=== PATIENT | female | born 1930 | race Caucasian/White ===

== ENCOUNTER 2017-04-18 15:47 | Inpatient (IN) | payer MEDICARE ==
[~2017-04-18] VITALS: Ht 172.7 cm; Wt 75.9 kg
[2017-04-18 17:59] VITALS: BP 175/101
[2017-04-18] MEDS ORDERED: METHYL SALICYLATE/MENTHOL TOPICAL OINTMENT 29GM TUBE. TP PRN (18:15)
[2017-04-18] MEDS ORDERED: ACETAMINOPHEN 325 MG TABLET PO PRN ×2 (18:15→19:00)
[2017-04-18] MEDS ORDERED: MAG HYDROX/AL HYDROX/SIMETH 30 ML ORAL.SUSP PO PRN (18:15)
[2017-04-18] MEDS ORDERED: IBUP400T18 PO (18:46)
[2017-04-18] MEDS ORDERED: QUET50TA5 PO (18:46)
[2017-04-18] MEDS ORDERED: OMEP20CA9 PO (18:46)
[2017-04-18] MEDS ORDERED: NAPR220T70 PO (18:46)
[2017-04-18] MEDS ORDERED: LORA0.5T PO (18:46)
[2017-04-18] MEDS ORDERED: MAG355OR11 PO (18:46)
[2017-04-18] MEDS ORDERED: TRIA15CR50 TP (18:46)
[2017-04-18] MEDS ORDERED: MULT1TAB52 PO (18:46)
[2017-04-18] MEDS ORDERED: QUET25TA5 PO (18:46)
[2017-04-18] MEDS ORDERED: CALC200T3 PO (18:46)
[2017-04-18] MEDS ORDERED: DOCU-109 PO (18:46)
[2017-04-18] MEDS ORDERED: BUSP5TAB PO (18:46)
[2017-04-18] MEDS ORDERED: ACET325T9 PO (18:46)
[2017-04-18 18:56] LABS: BASO % 1 % (0-3); EOS # 0.3 x10^3/uL (0.0-0.7); EOS % 4 % (0-3); HEMOGLOBIN 12.7 g/dL (12.0-15.5); LYMPH # 1.1 x10^3/uL (1.0-4.8); LYMPH % 18 % (24-48); MEAN CORPUSCULAR HEMOGLOBIN 30 pg (25-35); MEAN CORPUSCULAR HGB CONC 34 g/dL (31-37); MEAN CORPUSCULAR VOLUME 87 fL (79-100); MONO # 0.4 x10^3/uL (0.0-1.1); MONO % 6 % (0-9); NEUT # 4.6 x10^3uL (1.8-7.7); NEUT % 72 % (31-73); PLATELET COUNT 301 x10^3/uL (140-400); RED BLOOD COUNT 4.25 x10^6/uL (3.50-5.40); RED CELL DISTRIBUTION WIDTH 13.3 % (11.5-14.5); WHITE BLOOD COUNT 6.4 x10^3/uL (4.0-11.0)
[2017-04-18] MEDS ORDERED: DOCUSATE SODIUM 100 MG CAPSULE PO PRN (19:00)
[2017-04-18] MEDS ORDERED: CALCIUM CARBONATE 500 MG TAB.CHEW PO PRN (19:00)
[2017-04-18] MEDS ORDERED: IBUPROFEN 400 MG TABLET. PO PRN (19:00)
[2017-04-18] MEDS ORDERED: TRIAMCINOLONE ACETONIDE 0.5% TOPICAL CREAM 15GM TUBE. TP PRN (19:00)
[2017-04-18 19:08] LABS: ALBUMIN 3.4 g/dL (3.4-5.0); ALBUMIN/GLOBULIN RATIO 0.8 (1.0-1.7); CALCIUM 9.6 mg/dL (8.5-10.1); CREATININE 0.9 mg/dL (0.6-1.0); GFR 59.1; MAGNESIUM 1.8 mg/dL (1.8-2.4); POTASSIUM 4.3 mmol/L (3.5-5.1); TOTAL BILIRUBIN 0.3 mg/dL (0.2-1.0); TOTAL PROTEIN 7.5 g/dL (6.4-8.2)
[2017-04-18] MEDS ORDERED: IBUPROFEN 800 MG TABLET. PO PRN (19:15)
[2017-04-18] MEDS: QUEtiapine 50 MG TABLET. PO SCH (20:17)
[2017-04-18] MEDS: LORazepam 0.5 MG TABLET PO SCH (20:17)
[2017-04-18 20:29] LABS: BACTERIA,URINE 0 /HPF (0-FEW); BILIRUBIN,URINE NEG (NEG); CLARITY,URINE HAZY; COLOR,URINE YELLOW; GLUCOSE,URINE NEG (NEG); NITRITE,URINE NEG (NEG); SQUAMOUS EPITHELIAL CELL,UR MOD /LPF; UROBILINOGEN,URINE 0.2 mg/dL (0.2 mg/dL)
[2017-04-18] MEDS ORDERED: NON FORMULARY ITEM (Naproxen Sodium (Aleve) 220 MG) PO SCH (21:00)
[2017-04-19 00:50] VITALS: BP 128/66
[2017-04-19 05:57] VITALS: BP 172/75
[2017-04-19] MEDS: busPIRone 5 MG TABLET. PO SCH ×2 (09:02→14:59)
[2017-04-19] MEDS: PANTOPRAZOLE 40 MG TABLET. PO SCH (09:02)
[2017-04-19] MEDS: QUEtiapine 25 MG TABLET. PO SCH ×2 (09:03→14:59)
[2017-04-19 10:42] LABS: THYROID STIM HORMONE (TSH) 1.497 uIU/mL (0.358-3.740)
--- NOTE | 2017-04-19 11:28 | EKG ---
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
[2017-04-19 12:07] LABS: T3 TOTAL 88 ng/dL (71-180); THYROXINE 5.3 ug/dL (4.5-12.0)
[2017-04-19 14:09] LABS: HEMOGLOBIN A1C 5.7 % (4.8-5.6)
--- NOTE | 2017-04-19 16:03 | CONS ---
DATE OF CONSULTATION: 04/19/2017 REASON FOR CONSULTATION: Consult for medical management for the patient. HISTORY OF PRESENT ILLNESS: The patient is an 87-year-old female patient who is a resident at [facility] who apparently has been yelling, screaming, throwing self on the floor, agitated with increased aggression, delusional, stating that she is held captive at the facility. She apparently was seen at [facility] and was admitted [facility] for inpatient psychiatric stabilization. Apparently when she was seen, she was brought to the Emergency Room of [facility]. Patient has not slept for 3 weeks. She has visual hallucination, combative behavior on the background of Alzheimer disease. The patient is very forgetful and does not give any useful information. PAST MEDICAL HISTORY: Significant for hypertension, osteoarthritis, anemia, ataxia, recurrent falls. PAST SURGICAL HISTORY: Unremarkable, although the patient stated that she has appendectomy and cholecystectomy. PAST PSYCHIATRIC HISTORY: Significant for depression, anxiety, and severe dementia. ALLERGIES: She is allergic to CEFUROXIME. MEDICATIONS: She is currently on the following medications: Acetaminophen 650 mg every 4 hours as needed, buspirone 5 mg twice a day, calcium carbonate 200 two tablets every 6-8 hours, Colace 100 mg twice a day, ibuprofen 400 mg 1 to 2 tablets as needed for pain, lorazepam 0.5 mg at bedtime, Maalox 15 mL every 4 hours, multivitamin 1 tablet once a day, naproxen 220 mg twice a day, omeprazole 20 mg daily, quetiapine fumarate for Seroquel 50 mg at bedtime, Seroquel 25 mg twice a day, triamcinolone acetonide cream applied topically daily p.r.n. for skin rash. FAMILY HISTORY: Unobtainable. SOCIAL HISTORY: She apparently is a resident at [facility]. 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 She does not smoke, drink alcohol, or use any recreational drugs. PHYSICAL EXAMINATION: GENERAL: When I saw her this afternoon, she was sitting in her chair comfortably in no apparent respiratory distress, pale, but not jaundiced, cyanosed, or has thyromegaly. No jugular venous distention. No limb edema. VITAL SIGNS: Her heart rate was 84, blood pressure was 172/75, temperature was 97.9, respiratory rate was 18, and oxygen saturation was 96% on room air. HEAD, EYES, EARS, NOSE AND THROAT: Normocephalic, atraumatic. NECK: Supple. HEART: Showed normal first and second heart sounds with no gallop, rub or murmur. CHEST: Clear to auscultation. No wheeze or rhonchi. ABDOMEN: Distended, soft, nontender. No guarding or rigidity. No organomegaly. All hernial orifice intact. Bowel sounds normal. NEUROLOGIC: She is awake, alert, very confused. All her cranial nerves intact. EXTREMITIES: She moves extremities without difficulty, although she is very unsteady, marked ataxia, and she is a high fall risk. LABORATORY DATA: Showed her serum sodium to be 141, potassium 4.3, chloride 103, bicarbonate 30, anion gap of 8, BUN 10, creatinine 0.9, estimated GFR was 59 mL per minute. Her glucose is 152, calcium is 9.6, magnesium 1.8. Serum iron was 29. TIBC was 342, percent saturation was 8%. Total bilirubin, AST, ALT, alkaline phosphatase were normal. Total protein 7.5, albumin 3.4. His serum triglycerides were 115, total cholesterol 187, LDL cholesterol was 95, VLDL was 23, HDL cholesterol was 69 and ratio was 2. Her serum vitamin B12 was 730 mcg/mL, 25-hydroxyvitamin D was slightly low at 24.4. TSH was 1.497. Her white cell count was 6400, hemoglobin 12.7, hematocrit 37, MCV 87, and platelet count of 301,000. Urinalysis was unremarkable. So, in summary, this is an 87-year-old female patient, a resident at [facility] was admitted on account of increasing yelling, screaming, throwing herself on the floor, agitated, increased aggression and delusional, stating that she is held captive at the facility, of all this in a background of dementia with delusion. From a medical point of view, she seemed to be stable. All her lab work are within acceptable range except her vitamin D is slightly low for which I will start her on cholecalciferol. I will review all the pending lab work that is still pending at the time of this dictation and make any necessary recommendation. Thank you, Dr. Muir, for allowing me to participate in the care of this patient. CAMMIE SADLER MD DR: Joyce JOB#: [id number] / [id number]
[2017-04-19 16:11] VITALS: BP 126/64
--- NOTE | 2017-04-19 16:15 | PSYEV ---
DATE OF SERVICE: 04/19/2017 REASON FOR ADMISSION: This 87-year-old female was admitted to the inpatient program at [facility] as transfer from [facility] Room where she was evaluated. The patient [facility] The patient has been there since March of last year. The patient's main behavior problems included not sleeping, yelling, screaming all through the night, throwing stuff agitated, increased aggression and also falling to the floor. HISTORY OF PRESENT ILLNESS: The patient admits she and like to drink and also has been smoking until recently. She states she drinks wine almost every day with dinner. The patient never abused them. The patient thinks she is at work. Apparently, she used to work for . The patient also thought her is still living, but according to the information he is . The patient is somewhat defensive, not wanting to admit that she has a problem with dementia. The patient has been diagnosed with dementia, Alzheimer's type. The patient does not recall having any problems at home except admits that she has difficulty with sleep. The patient also has been noncompliant with the treatment. The patient was pleasant, able to hold a conversation. She is on wheelchair, unable to walk. The patient also had a fall recently. She is not sure it is 2 days or 2 weeks. The patient denies of any major trauma from the fall. The patient's son is the DPOA. The patient is also exhibiting some paranoia, mainly because of her confusion and cognitive problems, is misinterpreting her environment. PAST PSYCHIATRIC HISTORY: There is no information with regard to past hospitalization except she was treated with medications at the custodial, [facility] including Seroquel 25 mg b.i.d., Seroquel 50 mg at night, BuSpar 5 mg b.i.d. She was also on lorazepam 0.5 mg at bedtime, Zyprexa Zydis 2.5 mg q. 4 hours p.r.n., but the patient apparently did not respond to any of the medications. The patient apparently has dementia, that led to her placement at the [facility]. The patient also has a history of depression. CURRENT MEDICATIONS: Include Seroquel 25 mg b.i.d., 50 mg at night; BuSpar 5 mg b.i.d.; Protonix 40 mg daily; lorazepam 0.5 mg at night. The patient is also on routine p.r.n. orders for pain. PAST MEDICAL HISTORY: History of hyponatremia, history of UTI in the recent past, also urinary incontinence, ataxic gait, multiple falls, anemia, hypertension. The patient also has osteoarthritis. MEDICAL HISTORY: The patient is allergic to CEFUROXIME, apparently had rash. PHYSICAL EXAMINATION: VITAL SIGNS: Temperature 97.9, blood pressure 172/75, pulse 84, respirations 18, O2 sat 96%. SOCIAL HISTORY: The patient apparently did not sleep at all last night. PSYCHOSOCIAL HISTORY: The patient had considerable difficulty providing information because of her dementia except stating that she has 2 years of college. She was to her for several years, has 4 children. 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 The patient admits to smoking regularly, also drinking almost on a daily basis, but never had any problems according to her. The patient states probably she had a head trauma in the past, but she is not sure. The patient admits to falling. The patient does not recall anything that happened prior to coming here. The patient denies of any physical or emotional abuse. FAMILY HISTORY: Noncontributory. MENTAL STATUS EXAMINATION: The patient appeared to be of her stated age, able to make eye contact, able to hold a reasonable conversation. She is wheelchair bound, has problems with her gait. The patient currently is not showing any tremors or any agitation at this time. His speech clear, monotone, decreased rate and rhythm. Affect and mood showed she is somewhat anxious, somewhat perplexed. 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 The patient is distracted easily. The patient is able to make eye contact and she is alert. The patient has been confused, delusional, paranoid, inability to sleep, has been awake most of the night hollering, screaming and also hitting the staff. The patient currently denies of any visual or auditory hallucinations. The patient has significant memory problems and apparently she is not aware that she has problems with memory. The patient is not showing much insight into her problems. The patient is able to remember 3 objects, but immediate recalled and she was able to repeat 1 and 2-3 minutes later, she is not able to remember any of them. The patient was not able to do serial 7's. The patient's judgment is impaired. Insight minimal. The patient appears to be functioning on an average level of intelligence. DIAGNOSTIC IMPRESSION: AXIS I: Dementia, most likely Alzheimer's with depression, delusions, periods of confusion and behavioral disturbances. AXIS II: None. AXIS III: History of falls, hypertension, anemia, urinary incontinence and also alcohol abuse. STRENGTHS: The patient apparently in good physical health for her age and also supportive family. Son is the DPOA. INITIAL TREATMENT PLAN: The patient will have a physical exam, routine lab work. Also, the patient will be under close observation. The patient will continue on the medications listed above and also start on Remeron 15 mg at night to help her with sleep. LENGTH OF STAY: Seven to ten days. DISCHARGE CRITERIA: The patient at least able to be stable for 3 consecutive days without any major problems not having any side effects and will return to the placement. SARITA CARRERA MD DR: LAUREN/michael JOB#: [id number] / [id number]
[2017-04-19] MEDS ORDERED: CHOLECALCIFEROL (VITAMIN D3) 50,000 UNIT CAPSULE PO SCH (18:00)
[2017-04-19] MEDS: MIRTAZAPINE 15 MG TABLET PO SCH (19:32)
[2017-04-19] MEDS: QUEtiapine 50 MG TABLET. PO SCH (19:32)
[2017-04-19] MEDS: CHOLECALCIFEROL (VITAMIN D3) 50,000 UNIT CAPSULE PO SCH (19:32)
[2017-04-19] MEDS: LORazepam 0.5 MG TABLET PO SCH (19:32)
[2017-04-20 05:50] VITALS: BP 151/76
[2017-04-20] MEDS: busPIRone 5 MG TABLET. PO SCH ×2 (08:02→13:07)
[2017-04-20] MEDS: PANTOPRAZOLE 40 MG TABLET. PO SCH (08:02)
[2017-04-20] MEDS: QUEtiapine 25 MG TABLET. PO SCH ×2 (08:02→13:07)
[2017-04-20] MEDS: MIRTAZAPINE 15 MG TABLET PO SCH (20:25)
[2017-04-20] MEDS: QUEtiapine 50 MG TABLET. PO SCH (20:25)
--- NOTE | 2017-04-20 20:25 | PN ---
DATE: 04/20/2017 SUBJECTIVE: The patient was seen today, met with the staff, chart reviewed. The patient complains of feeling tired and weak. The patient is lot calmer, but appears to be confused. So far, the patient has not presented with any major problems that was reported before coming here. OBSERVATION: VITAL SIGNS: Temperature 97.3, blood pressure 151/76, pulse 67, respirations 18, O2 sat 95%. The patient slept about 8 hours last night. Appetite fair. The patient's lab reviewed, which were all within normal range except for hemoglobin A1c of 5.7, HDL cholesterol was 69, glucose level fluctuates slightly high. The patient's current medication includes mirtazapine 15 mg at night, Seroquel 25 mg b.i.d. and 50 mg at night, BuSpar 5 mg b.i.d., olanzapine 2.5 mg q. 2 hours p.r.n. The patient is also on lorazepam 0.5 mg at night. The patient is not having any side effects to the medications. ASSESSMENT: AXIS I: Dementia, most likely Alzheimer's with the depression, delusions, and confusion and behavioral disturbances, unspecified. AXIS II: None. AXIS III: History of falls, hypertension, anemia, urinary incontinence, and history of alcohol abuse. PLAN: Continue with the treatment. SARITA CARRERA MD DR: LAUREN/michael JOB#: [id number] / [id number]
[2017-04-20] MEDS: LORazepam 0.5 MG TABLET PO SCH (20:26)
[2017-04-21 06:16] VITALS: BP 124/58
[2017-04-21] MEDS: QUEtiapine 25 MG TABLET. PO SCH ×2 (09:32→14:11)
[2017-04-21] MEDS: PANTOPRAZOLE 40 MG TABLET. PO SCH (09:32)
[2017-04-21] MEDS: busPIRone 5 MG TABLET. PO SCH ×2 (09:32→14:11)
[2017-04-21 16:26] VITALS: BP 124/56
[2017-04-21 16:31] VITALS: BP 171/77
[2017-04-21] MEDS ORDERED: CHOLECALCIFEROL (VITAMIN D3) 50,000 UNIT CAPSULE PO SCH (19:00)
[2017-04-21] MEDS: LORazepam 0.5 MG TABLET PO SCH (19:47)
[2017-04-21] MEDS: MIRTAZAPINE 15 MG TABLET PO SCH (19:47)
[2017-04-21] MEDS: QUEtiapine 50 MG TABLET. PO SCH (19:47)
--- NOTE | 2017-04-21 20:57 | PDOC ---
Exam Note: Reginaldo Note: Please also refer to the separate dictated note~for this date of service dictated separately.~Patient seen individually. Discussed the patient with Nursing staff reviewed the chart.~Reviewed interim history and current functioning. Reviewed vital signs,~Labs/ Radiology~and current medications noted below. Continue current treatment with the changes noted in the dictated addendum note Assessment: Vital Signs: Vital Signs Date Time Temp Pulse Resp B/P (MAP) Pulse Ox O2 Delivery O2 Flow Rate FiO2 04/21/17 16:31 97.6 75 18 171/77 (108) 98 04/21/17 06:16 Room Air I&O Intake and Output 04/21/17 07:00 Intake Total 840 ml Balance 840 ml Intake Oral 840 ml Current Medications: Meds: Current Medications Acetaminophen (Tylenol) 650 mg PRN Q6HRS PRN PO PAIN / TEMP; Start 04/18/17 at 18:15; Stop 04/18/17 at 18:57; Status DC Multi-Ingredient Ointment (Analgesic [place]) 1 shay PRN QID PRN TP MUSCLE PAIN; Start 04/18/17 at 18:15 Al Hydroxide/Mg Hydroxide (Mylanta Plus Xs) 15 ml PRN AFTMEALHC PRN PO DYSPEPSIA; Start 04/18/17 at 18:15 Magnesium Hydroxide (Milk Of Magnesia) 2,400 mg PRN QHS PRN PO CONSTIPATION; Start 04/18/17 at 18:15 Acetaminophen (Tylenol) 650 mg PRN Q4HRS PRN PO PAIN; Start 04/18/17 at 19:00 Buspirone HCl (Buspar) 5 mg BID@0900,1400 PO Last administered on 04/21/17 14 :11; Start 04/19/17 at 09:00 Calcium Carbonate/ Glycine (Tums) 500 mg PRN DAILY PRN PO gi upset; Start at 19:00 Docusate Sodium (Colace) 100 mg PRN BID PRN PO constipation ; Start 04/18/17 at 19:00 Ibuprofen (Motrin) 400 mg PRN Q6HRS PRN PO PAIN; Start 04/18/17 at 19:00 Lorazepam (Ativan) 0.5 mg QHS PO Last administered on 04/21/17 19:47; Start 04/18/17 at 21:00 Quetiapine Fumarate (SEROquel) 25 mg BID@0900,1400 PO Last administered on 14:11; Start 04/19/17 at 09:00 Quetiapine Fumarate (SEROquel) 50 mg QHS PO Last administered on 04/21/17 19: 47; Start 04/18/17 at 21:00 Triamcinolone Acetonide (Aristocort) 1 shay PRN DAILY PRN TP RASH; Start at 19:00 Non-Formulary Medication 220 mg BID PO ; Start 04/18/17 at 21:00; Stop at 21:00; Status DC Pantoprazole Sodium (Protonix) 40 mg DAILYAC PO Last administered on 09:32; Start 04/19/17 at 07:30 Ibuprofen (Motrin) 800 mg PRN Q6HRS PRN PO PAIN; Start 04/18/17 at 19:15 Olanzapine (ZyPREXA ZYDIS) 5 mg 1X ONCE PO Last administered on 04/18/17 23: 50; Start 04/19/17 at 00:00; Stop 04/19/17 at 00:01; Status DC Olanzapine (ZyPREXA ZYDIS) 2.5 mg PRN Q2HR PRN PO ANXIETY / AGITATION Last administered on 04/21/17 01:20; Start 04/18/17 at 23:45 Vitamin D (Vitamin D3) 50,000 unit WEEKLY PO ; Start 04/19/17 at 18:00; Stop 04/19/17 at 18:00; Status DC Mirtazapine (Remeron) 15 mg QHS PO Last administered on 04/21/17 19:47; Start 04/19/17 at 21:00 Vitamin D (Vitamin D3) 50,000 unit WEEKLY PO Last administered on 04/19/17 19 :32; Start 04/19/17 at 21:00 Vitamin D (Vitamin D3) 50,000 unit WEEKLY PO ; Start 04/21/17 at 19:00; Status UNV Active Scripts Active Reported Tylenol (Acetaminophen) 325 Mg Tablet 650 Mg PO PRN Q4HRS PRN Triamcinolone Acetonide 15 Gm Cream..g. 1 Shay TP PRN DAILY PRN Ibuprofen 400 Mg Tablet 1-2 Tab PO Tums (Calcium Carbonate) 200 Mg Tab.chew 2 Tab PO PRN Q6-8HRS PRN Maalox Advanced Suspension (Mag Hydrox/Aluminum Hyd/Simeth) 355 Ml Oral.susp 30 Ml PO Colace (Docusate Sodium) 100 Mg Capsule 100 Mg PO PRN BID PRN Lorazepam 0.5 Mg Tablet 0.5 Mg PO QHS Buspirone Hcl 5 Mg Tablet 5 Mg PO BID@0900,1400 Seroquel (Quetiapine Fumarate) 25 Mg Tablet 25 Mg PO BID@0900,1400 Seroquel (Quetiapine Fumarate) 50 Mg Tablet 50 Mg PO QHS Multivitamins (Multivitamin) 1 Each Tablet 1 Each PO Omeprazole 20 Mg Capsule.dr 20 Mg PO DAILY08 Aleve (Naproxen Sodium) 220 Mg Tablet 220 Mg PO BID I have reviewed the current psychotropics carefully including drug interactions. Risk benefit ratio favors no change other than as noted in my dictated progress note. Diagnosis: Problems: (1) Dementia MATTI THOMAS MD Apr 21, 2017 20:57
[2017-04-22 06:17] VITALS: BP 149/91
[2017-04-22] MEDS: QUEtiapine 25 MG TABLET. PO SCH ×2 (09:33→14:23)
[2017-04-22] MEDS: busPIRone 5 MG TABLET. PO SCH ×2 (09:33→14:23)
[2017-04-22] MEDS: PANTOPRAZOLE 40 MG TABLET. PO SCH (09:33)
[2017-04-22 15:58] VITALS: BP 128/71
--- NOTE | 2017-04-22 17:58 | PN ---
DATE: 04/21/2017 This late entry 04/21/2017 covers elements not covered in my initial note of 04/21/2017. SUBJECTIVE: I met with the patient evening of 04/21/2017. I have reviewed information with Dr. Marie. The patient was admitted from [facility] where she presented from [facility] on account of yelling, screaming, throwing herself on the floor, increasing agitation, aggression, being delusional. Behaviors were deemed unmanageable at the facility resulting in the referral to [facility] and then to us for inpatient psychiatric stabilization. The patient responds poorly to male caregivers. Overall, on the unit, she remains confused, forgetful, has very poor short-term memory, remains somewhat anxious. No active suicidal or homicidal ideation, but she remains impulsive. REVIEW OF SYSTEMS: No CV, , pulmonary, eye, ENT system symptoms on review. Reliability poor. MENTAL STATUS EXAM: Oriented to herself. Insight, judgment, recent and remote memory, attention, concentration, fund of knowledge poor, consistent with her diagnoses. IMPRESSION: Major neurocognitive disorder, possibly Alzheimer's with depression, delusion, behavioral disturbance. Major neurocognitive disorder is probably due to alcohol with delusion, depression, behavioral disturbance, anxiety disorder, unspecified; impulse control disorder, unspecified. PLAN: Maintain Seroquel 25 mg b.i.d. and 50 mg at bedtime, Buspar 5 mg twice a day, Zyprexa p.r.n., Remeron 15 mg at bedtime, Ativan 0.5 mg at bedtime will reduce to 0.25 mg at bedtime as a gradual taper off the benzodiazepines given the patient's age. Reviewed drug interactions. Risk/benefit ratio favors no further change. MAN Abiodun THOMAS MD DR: ALTON/michael JOB#: [id number] / [id number]
--- NOTE | 2017-04-22 19:52 | PDOC ---
Exam Note: Reginaldo Note: Please also refer to the separate dictated note~for this date of service dictated separately.~Patient seen individually. Discussed the patient with Nursing staff reviewed the chart.~Reviewed interim history and current functioning. Reviewed vital signs,~Labs/ Radiology~and current medications noted below. Continue current treatment with the changes noted in the dictated addendum note Assessment: Vital Signs: Vital Signs Date Time Temp Pulse Resp B/P (MAP) Pulse Ox O2 Delivery O2 Flow Rate FiO2 04/22/17 15:58 97.9 103 18 128/71 (90) 97 04/21/17 06:16 Room Air I&O Intake and Output 04/22/17 07:00 Intake Total 840 ml Balance 840 ml Intake Oral 840 ml # Bowel Movements 1 Current Medications: Meds: Current Medications Acetaminophen (Tylenol) 650 mg PRN Q6HRS PRN PO PAIN / TEMP; Start 04/18/17 at 18:15; Stop 04/18/17 at 18:57; Status DC Multi-Ingredient Ointment (Analgesic [place]) 1 shay PRN QID PRN TP MUSCLE PAIN; Start 04/18/17 at 18:15 Al Hydroxide/Mg Hydroxide (Mylanta Plus Xs) 15 ml PRN AFTMEALHC PRN PO DYSPEPSIA; Start 04/18/17 at 18:15 Magnesium Hydroxide (Milk Of Magnesia) 2,400 mg PRN QHS PRN PO CONSTIPATION; Start 04/18/17 at 18:15 Acetaminophen (Tylenol) 650 mg PRN Q4HRS PRN PO PAIN; Start 04/18/17 at 19:00 Buspirone HCl (Buspar) 5 mg BID@0900,1400 PO Last administered on 04/22/17 14 :23; Start 04/19/17 at 09:00 Calcium Carbonate/ Glycine (Tums) 500 mg PRN DAILY PRN PO gi upset; Start at 19:00 Docusate Sodium (Colace) 100 mg PRN BID PRN PO constipation ; Start 04/18/17 at 19:00 Ibuprofen (Motrin) 400 mg PRN Q6HRS PRN PO PAIN; Start 04/18/17 at 19:00 Lorazepam (Ativan) 0.5 mg QHS PO Last administered on 04/21/17 19:47; Start 04/18/17 at 21:00; Stop 04/22/17 at 12:58; Status DC Quetiapine Fumarate (SEROquel) 25 mg BID@0900,1400 PO Last administered on 14:23; Start 04/19/17 at 09:00 Quetiapine Fumarate (SEROquel) 50 mg QHS PO Last administered on 04/21/17 19: 47; Start 04/18/17 at 21:00 Triamcinolone Acetonide (Aristocort) 1 shay PRN DAILY PRN TP RASH; Start at 19:00 Non-Formulary Medication 220 mg BID PO ; Start 04/18/17 at 21:00; Stop at 21:00; Status DC Pantoprazole Sodium (Protonix) 40 mg DAILYAC PO Last administered on 09:33; Start 04/19/17 at 07:30 Ibuprofen (Motrin) 800 mg PRN Q6HRS PRN PO PAIN; Start 04/18/17 at 19:15 Olanzapine (ZyPREXA ZYDIS) 5 mg 1X ONCE PO Last administered on 04/18/17 23: 50; Start 04/19/17 at 00:00; Stop 04/19/17 at 00:01; Status DC Olanzapine (ZyPREXA ZYDIS) 2.5 mg PRN Q2HR PRN PO ANXIETY / AGITATION Last administered on 04/21/17 01:20; Start 04/18/17 at 23:45 Vitamin D (Vitamin D3) 50,000 unit WEEKLY PO ; Start 04/19/17 at 18:00; Stop 04/19/17 at 18:00; Status DC Mirtazapine (Remeron) 15 mg QHS PO Last administered on 04/21/17 19:47; Start 04/19/17 at 21:00 Vitamin D (Vitamin D3) 50,000 unit WEEKLY PO Last administered on 04/19/17 19 :32; Start 04/19/17 at 21:00 Vitamin D (Vitamin D3) 50,000 unit WEEKLY PO ; Start 04/21/17 at 19:00; Status UNV Lorazepam (Ativan) 0.25 mg QHS PO ; Start 04/22/17 at 21:00; Stop 04/24/17 at 21:01 Active Scripts Active Reported Tylenol (Acetaminophen) 325 Mg Tablet 650 Mg PO PRN Q4HRS PRN Triamcinolone Acetonide 15 Gm Cream..g. 1 Shay TP PRN DAILY PRN Ibuprofen 400 Mg Tablet 1-2 Tab PO Tums (Calcium Carbonate) 200 Mg Tab.chew 2 Tab PO PRN Q6-8HRS PRN Maalox Advanced Suspension (Mag Hydrox/Aluminum Hyd/Simeth) 355 Ml Oral.susp 30 Ml PO Colace (Docusate Sodium) 100 Mg Capsule 100 Mg PO PRN BID PRN Lorazepam 0.5 Mg Tablet 0.5 Mg PO QHS Buspirone Hcl 5 Mg Tablet 5 Mg PO BID@0900,1400 Seroquel (Quetiapine Fumarate) 25 Mg Tablet 25 Mg PO BID@0900,1400 Seroquel (Quetiapine Fumarate) 50 Mg Tablet 50 Mg PO QHS Multivitamins (Multivitamin) 1 Each Tablet 1 Each PO Omeprazole 20 Mg Capsule.dr 20 Mg PO DAILY08 Aleve (Naproxen Sodium) 220 Mg Tablet 220 Mg PO BID I have reviewed the current psychotropics carefully including drug interactions. Risk benefit ratio favors no change other than as noted in my dictated progress note. Diagnosis: Problems: (1) Dementia (2) Anxiety disorder (3) Dementia in Alzheimer's disease with depression (4) Dementia in Alzheimer's disease with delusions (5) Dementia associated with alcoholism with behavioral disturbance (6) Impulse control disorder MATTI THOMAS MD Apr 22, 2017 19:52
[2017-04-22] MEDS: MIRTAZAPINE 15 MG TABLET PO SCH (20:04)
[2017-04-22] MEDS: QUEtiapine 50 MG TABLET. PO SCH (20:04)
[2017-04-22] MEDS: LORazepam 0.5 MG TABLET PO SCH (20:04)
[2017-04-23 06:09] VITALS: BP 180/82
[2017-04-23] MEDS: QUEtiapine 25 MG TABLET. PO SCH ×2 (08:23→14:19)
[2017-04-23] MEDS: busPIRone 5 MG TABLET. PO SCH ×2 (08:23→14:19)
[2017-04-23] MEDS: PANTOPRAZOLE 40 MG TABLET. PO SCH (08:23)
[2017-04-23 15:51] VITALS: BP 129/77
[2017-04-23] MEDS: LORazepam 0.5 MG TABLET PO SCH (19:42)
[2017-04-23] MEDS: MIRTAZAPINE 15 MG TABLET PO SCH (19:43)
[2017-04-23] MEDS: QUEtiapine 50 MG TABLET. PO SCH (19:43)
--- NOTE | 2017-04-23 20:04 | PDOC ---
Exam Note: Reginaldo Note: Please also refer to the separate dictated note~for this date of service dictated separately.~Patient seen individually. Discussed the patient with Nursing staff reviewed the chart.~Reviewed interim history and current functioning. Reviewed vital signs,~Labs/ Radiology~and current medications noted below. Continue current treatment with the changes noted in the dictated addendum note Assessment: Vital Signs: Vital Signs Date Time Temp Pulse Resp B/P (MAP) Pulse Ox O2 Delivery O2 Flow Rate FiO2 04/23/17 15:51 98.3 92 20 129/77 (94) 94 04/21/17 06:16 Room Air I&O Intake and Output 04/23/17 07:00 Intake Total 920 ml Balance 920 ml Intake Oral 920 ml # Voids 1 Current Medications: Meds: Current Medications Acetaminophen (Tylenol) 650 mg PRN Q6HRS PRN PO PAIN / TEMP; Start 04/18/17 at 18:15; Stop 04/18/17 at 18:57; Status DC Multi-Ingredient Ointment (Analgesic [place]) 1 shay PRN QID PRN TP MUSCLE PAIN; Start 04/18/17 at 18:15 Al Hydroxide/Mg Hydroxide (Mylanta Plus Xs) 15 ml PRN AFTMEALHC PRN PO DYSPEPSIA; Start 04/18/17 at 18:15 Magnesium Hydroxide (Milk Of Magnesia) 2,400 mg PRN QHS PRN PO CONSTIPATION; Start 04/18/17 at 18:15 Acetaminophen (Tylenol) 650 mg PRN Q4HRS PRN PO PAIN; Start 04/18/17 at 19:00 Buspirone HCl (Buspar) 5 mg BID@0900,1400 PO Last administered on 04/23/17t 14 :19; Start 04/19/17 at 09:00; Stop 04/23/17 at 18:46; Status DC Calcium Carbonate/ Glycine (Tums) 500 mg PRN DAILY PRN PO gi upset; Start at 19:00 Docusate Sodium (Colace) 100 mg PRN BID PRN PO constipation ; Start 04/18/17 at 19:00 Ibuprofen (Motrin) 400 mg PRN Q6HRS PRN PO PAIN; Start 04/18/17 at 19:00 Lorazepam (Ativan) 0.5 mg QHS PO Last administered on 04/21/17 19:47; Start 04/18/17 at 21:00; Stop 04/22/17 at 12:58; Status DC Quetiapine Fumarate (SEROquel) 25 mg BID@0900,1400 PO Last administered on 14:19; Start 04/19/17 at 09:00 Quetiapine Fumarate (SEROquel) 50 mg QHS PO Last administered on 04/23/17 19: 43; Start 04/18/17 at 21:00 Triamcinolone Acetonide (Aristocort) 1 shay PRN DAILY PRN TP RASH; Start at 19:00 Non-Formulary Medication 220 mg BID PO ; Start 04/18/17 at 21:00; Stop at 21:00; Status DC Pantoprazole Sodium (Protonix) 40 mg DAILYAC PO Last administered on 08:23; Start 04/19/17 at 07:30 Ibuprofen (Motrin) 800 mg PRN Q6HRS PRN PO PAIN; Start 04/18/17 at 19:15 Olanzapine (ZyPREXA ZYDIS) 5 mg 1X ONCE PO Last administered on 04/18/17 23: 50; Start 04/19/17 at 00:00; Stop 04/19/17 at 00:01; Status DC Olanzapine (ZyPREXA ZYDIS) 2.5 mg PRN Q2HR PRN PO ANXIETY / AGITATION Last administered on 04/21/17 01:20; Start 04/18/17 at 23:45 Vitamin D (Vitamin D3) 50,000 unit WEEKLY PO ; Start 04/19/17 at 18:00; Stop 04/19/17 at 18:00; Status DC Mirtazapine (Remeron) 15 mg QHS PO Last administered on 04/23/17 19:43; Start 04/19/17 at 21:00 Vitamin D (Vitamin D3) 50,000 unit WEEKLY PO Last administered on 04/19/17 19 :32; Start 04/19/17 at 21:00 Vitamin D (Vitamin D3) 50,000 unit WEEKLY PO ; Start 04/21/17 at 19:00; Status UNV Lorazepam (Ativan) 0.25 mg QHS PO Last administered on 04/23/17 19:42; Start 04/22/17 at 21:00; Stop 04/24/17 at 21:01 Buspirone HCl (Buspar) 5 mg TID@0900,1400,1700 PO ; Start 04/24/17 at 09:00 Active Scripts Active Reported Tylenol (Acetaminophen) 325 Mg Tablet 650 Mg PO PRN Q4HRS PRN Triamcinolone Acetonide 15 Gm Cream..g. 1 Shay TP PRN DAILY PRN Ibuprofen 400 Mg Tablet 1-2 Tab PO Tums (Calcium Carbonate) 200 Mg Tab.chew 2 Tab PO PRN Q6-8HRS PRN Maalox Advanced Suspension (Mag Hydrox/Aluminum Hyd/Simeth) 355 Ml Oral.susp 30 Ml PO Colace (Docusate Sodium) 100 Mg Capsule 100 Mg PO PRN BID PRN Lorazepam 0.5 Mg Tablet 0.5 Mg PO QHS Buspirone Hcl 5 Mg Tablet 5 Mg PO BID@0900,1400 Seroquel (Quetiapine Fumarate) 25 Mg Tablet 25 Mg PO BID@0900,1400 Seroquel (Quetiapine Fumarate) 50 Mg Tablet 50 Mg PO QHS Multivitamins (Multivitamin) 1 Each Tablet 1 Each PO Omeprazole 20 Mg Capsule.dr 20 Mg PO DAILY08 Aleve (Naproxen Sodium) 220 Mg Tablet 220 Mg PO BID I have reviewed the current psychotropics carefully including drug interactions. Risk benefit ratio favors no change other than as noted in my dictated progress note. 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
--- NOTE | 2017-04-24 03:55 | PN ---
DATE: 04/22/2017 Psychiatric Progress Note This late entry of 04/22 covers elements not covered in my initial note of 04/22. I met with the patient on the evening of 04/22. The patient remains confused, forgetful, unable to redirect memory about 10 seconds, resistive to care by male caregivers. REVIEW OF SYSTEMS: Ambulation impaired, seated in wheelchair, but she ambulates with a walker. No CV, , pulmonary, eye system symptoms on review. MENTAL STATUS EXAM: Oriented to herself, situation, felt the year was 1965 as I questioned orientation related questions. Speech coherent, abstraction fair, computation impaired, language function intact and attention span short. Mood and affect somewhat anxious. IMPRESSION: Unchanged from initial note. PLAN: Remeron has been initiated. Maintain Seroquel and BuSpar. Ativan is at bedtime, is being tapered. Adjust further as clinically indicated. MAN Abiodun THOMAS MD DR: ALTON/michael JOB#: [id number] / [id number]
[2017-04-24 06:10] VITALS: BP 165/83
[2017-04-24] MEDS: QUEtiapine 25 MG TABLET. PO SCH ×2 (07:38→14:04)
[2017-04-24] MEDS: PANTOPRAZOLE 40 MG TABLET. PO SCH (07:38)
[2017-04-24] MEDS: busPIRone 5 MG TABLET. PO SCH ×3 (07:39→17:16)
[2017-04-24 15:24] VITALS: BP 103/62
[2017-04-24] MEDS: LORazepam 0.5 MG TABLET PO SCH (19:52)
[2017-04-24] MEDS: QUEtiapine 50 MG TABLET. PO SCH (19:55)
[2017-04-24] MEDS: MIRTAZAPINE 15 MG TABLET PO SCH (19:55)
--- NOTE | 2017-04-24 20:00 | PDOC ---
Exam Note: Reginaldo Note: Please also refer to the separate dictated note~for this date of service dictated separately.~Patient seen individually. Discussed the patient with Nursing staff reviewed the chart.~Reviewed interim history and current functioning. Reviewed vital signs,~Labs/ Radiology~and current medications noted below. Continue current treatment with the changes noted in the dictated addendum note Assessment: Vital Signs: Vital Signs Date Time Temp Pulse Resp B/P (MAP) Pulse Ox O2 Delivery O2 Flow Rate FiO2 04/24/17 15:24 97.4 97 20 103/62 (76) 96 Room Air I&O Intake and Output 04/24/17 07:00 Intake Total 840 ml Balance 840 ml Intake Oral 840 ml # Voids 3 # Bowel Movements 1 Current Medications: Meds: Current Medications Acetaminophen (Tylenol) 650 mg PRN Q6HRS PRN PO PAIN / TEMP; Start 04/18/17 at 18:15; Stop 04/18/17 at 18:57; Status DC Multi-Ingredient Ointment (Analgesic [place]) 1 shay PRN QID PRN TP MUSCLE PAIN; Start 04/18/17 at 18:15 Al Hydroxide/Mg Hydroxide (Mylanta Plus Xs) 15 ml PRN AFTMEALHC PRN PO DYSPEPSIA; Start 04/18/17 at 18:15 Magnesium Hydroxide (Milk Of Magnesia) 2,400 mg PRN QHS PRN PO CONSTIPATION; Start 04/18/17 at 18:15 Acetaminophen (Tylenol) 650 mg PRN Q4HRS PRN PO PAIN; Start 04/18/17 at 19:00 Buspirone HCl (Buspar) 5 mg BID@0900,1400 PO Last administered on 04/23/17t 14 :19; Start 04/19/17 at 09:00; Stop 04/23/17 at 18:46; Status DC Calcium Carbonate/ Glycine (Tums) 500 mg PRN DAILY PRN PO gi upset; Start at 19:00 Docusate Sodium (Colace) 100 mg PRN BID PRN PO constipation ; Start 04/18/17 at 19:00 Ibuprofen (Motrin) 400 mg PRN Q6HRS PRN PO PAIN; Start 04/18/17 at 19:00 Lorazepam (Ativan) 0.5 mg QHS PO Last administered on 04/21/17 19:47; Start 04/18/17 at 21:00; Stop 04/22/17 at 12:58; Status DC Quetiapine Fumarate (SEROquel) 25 mg BID@0900,1400 PO Last administered on 14:04; Start 04/19/17 at 09:00 Quetiapine Fumarate (SEROquel) 50 mg QHS PO Last administered on 04/23/17 19: 43; Start 04/18/17 at 21:00 Triamcinolone Acetonide (Aristocort) 1 shay PRN DAILY PRN TP RASH; Start at 19:00 Non-Formulary Medication 220 mg BID PO ; Start 04/18/17 at 21:00; Stop at 21:00; Status DC Pantoprazole Sodium (Protonix) 40 mg DAILYAC PO Last administered on 07:38; Start 04/19/17 at 07:30 Ibuprofen (Motrin) 800 mg PRN Q6HRS PRN PO PAIN; Start 04/18/17 at 19:15 Olanzapine (ZyPREXA ZYDIS) 5 mg 1X ONCE PO Last administered on 04/18/17 23: 50; Start 04/19/17 at 00:00; Stop 04/19/17 at 00:01; Status DC Olanzapine (ZyPREXA ZYDIS) 2.5 mg PRN Q2HR PRN PO ANXIETY / AGITATION Last administered on 04/23/17 21:21; Start 04/18/17 at 23:45 Vitamin D (Vitamin D3) 50,000 unit WEEKLY PO ; Start 04/19/17 at 18:00; Stop 04/19/17 at 18:00; Status DC Mirtazapine (Remeron) 15 mg QHS PO Last administered on 04/23/17 19:43; Start 04/19/17 at 21:00 Vitamin D (Vitamin D3) 50,000 unit WEEKLY PO Last administered on 04/19/17 19 :32; Start 04/19/17 at 21:00 Vitamin D (Vitamin D3) 50,000 unit WEEKLY PO ; Start 04/21/17 at 19:00; Status UNV Lorazepam (Ativan) 0.25 mg QHS PO Last administered on 11/27/17at 19:42; Start 04/22/17 at 21:00; Stop 04/24/17 at 21:01 Buspirone HCl (Buspar) 5 mg TID@0900,1400,1700 PO Last administered on t 17:16; Start 04/24/17 at 09:00 Active Scripts Active Reported Tylenol (Acetaminophen) 325 Mg Tablet 650 Mg PO PRN Q4HRS PRN Triamcinolone Acetonide 15 Gm Cream..g. 1 Shay TP PRN DAILY PRN Ibuprofen 400 Mg Tablet 1-2 Tab PO Tums (Calcium Carbonate) 200 Mg Tab.chew 2 Tab PO PRN Q6-8HRS PRN Maalox Advanced Suspension (Mag Hydrox/Aluminum Hyd/Simeth) 355 Ml Oral.susp 30 Ml PO Colace (Docusate Sodium) 100 Mg Capsule 100 Mg PO PRN BID PRN Lorazepam 0.5 Mg Tablet 0.5 Mg PO QHS Buspirone Hcl 5 Mg Tablet 5 Mg PO BID@0900,1400 Seroquel (Quetiapine Fumarate) 25 Mg Tablet 25 Mg PO BID@0900,1400 Seroquel (Quetiapine Fumarate) 50 Mg Tablet 50 Mg PO QHS Multivitamins (Multivitamin) 1 Each Tablet 1 Each PO Omeprazole 20 Mg Capsule. 20 Mg PO DAILY08 Aleve (Naproxen Sodium) 220 Mg Tablet 220 Mg PO BID I have reviewed the current psychotropics carefully including drug interactions. Risk benefit ratio favors no change other than as noted in my dictated progress note. 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
--- NOTE | 2017-04-25 03:54 | PN ---
DATE: 04/23/2017 PSYCHIATRIC PROGRESS NOTE This late entry date of service 04/23/2017 covers elements not covered in my initial note of 04/23/2017. I met with the patient evening of 04/23/2017. SUBJECTIVE: The patient slept 6-1/4 hours previous evening, somewhat irritable at the dining room table, inattentive, distractible. Short-term memory is extremely poor. She is quick to anger, but gets over it almost as quickly. REVIEW OF SYSTEMS: Ambulation impaired, with a walker. No CV, , pulmonary, eye, ENT system symptoms on review. MENTAL STATUS EXAM: Oriented to herself. Insight, judgment, recent and remote memory, attention, concentration, fund of knowledge poor, consistent with her diagnosis mentioned in my initial note. PLAN: Continue current psychotropics. Increase BuSpar from 5 mg twice a day to 5 mg 3 times a day. Maintain Seroquel, Remeron, unchanged along with Zyprexa p.r.n. and Ativan is being tapered to be discontinued 04/25/2017. MATTI THOMAS MD DR: ALTON/michael JOB#: [id number] / [id number]
[2017-04-25 06:22] VITALS: BP 180/83
[2017-04-25] MEDS: PANTOPRAZOLE 40 MG TABLET. PO SCH (07:31)
[2017-04-25] MEDS: busPIRone 5 MG TABLET. PO SCH ×3 (09:16→16:53)
[2017-04-25] MEDS: QUEtiapine 25 MG TABLET. PO SCH ×2 (09:16→15:21)
[2017-04-25 09:33] LABS: BASO # 0.1 x10^3/uL (0.0-0.2); BASO % 1 % (0-3); EOS # 0.1 x10^3/uL (0.0-0.7); EOS % 1 % (0-3); HEMATOCRIT 38.5 % (36.0-47.0); HEMOGLOBIN 13.2 g/dL (12.0-15.5); LYMPH # 1.2 x10^3/uL (1.0-4.8); LYMPH % 15 % (24-48); MEAN CORPUSCULAR HEMOGLOBIN 30 pg (25-35); MEAN CORPUSCULAR HGB CONC 34 g/dL (31-37); MEAN CORPUSCULAR VOLUME 87 fL (79-100); MONO # 0.7 x10^3/uL (0.0-1.1); MONO % 9 % (0-9); NEUT % 75 % (31-73); PLATELET COUNT 334 x10^3/uL (140-400); RED BLOOD COUNT 4.45 x10^6/uL (3.50-5.40); RED CELL DISTRIBUTION WIDTH 13.3 % (11.5-14.5); WHITE BLOOD COUNT 8.1 x10^3/uL (4.0-11.0)
[2017-04-25 10:00] LABS: ALBUMIN 3.4 g/dL (3.4-5.0); ALBUMIN/GLOBULIN RATIO 0.8 (1.0-1.7); CALCIUM 9.7 mg/dL (8.5-10.1); CREATININE 1.1 mg/dL (0.6-1.0); GFR 46.9; POTASSIUM 3.8 mmol/L (3.5-5.1); TOTAL BILIRUBIN 0.6 mg/dL (0.2-1.0); TOTAL PROTEIN 7.6 g/dL (6.4-8.2)
[2017-04-25 15:29] VITALS: BP 143/64
[2017-04-25] MEDS ORDERED: traZODone 50 MG TABLET. PO PRN (18:45)
[2017-04-25] MEDS: MIRTAZAPINE 15 MG TABLET PO SCH (19:22)
[2017-04-25] MEDS: QUEtiapine 50 MG TABLET. PO SCH (19:22)
[2017-04-25] MEDS: traZODone 50 MG TABLET. PO SCH (19:23)
--- NOTE | 2017-04-25 20:01 | PDOC ---
Exam Note: Reginaldo Note: Please also refer to the separate dictated note~for this date of service dictated separately.~Patient seen individually. Discussed the patient with Nursing staff reviewed the chart.~Reviewed interim history and current functioning. Reviewed vital signs,~Labs/ Radiology~and current medications noted below. Continue current treatment with the changes noted in the dictated addendum note Assessment: Vital Signs: Vital Signs Date Time Temp Pulse Resp B/P (MAP) Pulse Ox O2 Delivery O2 Flow Rate FiO2 04/25/17 15:29 97.3 100 18 143/64 (90) 97 04/24/17 15:24 Room Air I&O Intake and Output 04/25/17 07:00 Intake Total 600 ml Balance 600 ml Intake Oral 600 ml # Bowel Movements 3 Labs: Laboratory Tests Test 04/25/17 09:01 White Blood Count 8.1 x10^3/uL (4.0-11.0) Red Blood Count 4.45 x10^6/uL (3.50-5.40) Hemoglobin 13.2 g/dL (12.0-15.5) Hematocrit 38.5 % (36.0-47.0) Mean Corpuscular Volume 87 fL (79-100) Mean Corpuscular Hemoglobin 30 pg (25-35) Mean Corpuscular Hemoglobin Concent 34 g/dL (31-37) Red Cell Distribution Width 13.3 % (11.5-14.5) Platelet Count 334 x10^3/uL (140-400) Neutrophils (%) (Auto) 75 % (31-73) H Lymphocytes (%) (Auto) 15 % (24-48) L Monocytes (%) (Auto) 9 % (0-9) Eosinophils (%) (Auto) 1 % (0-3) Basophils (%) (Auto) 1 % (0-3) Neutrophils # (Auto) 6.0 x10^3uL (1.8-7.7) Lymphocytes # (Auto) 1.2 x10^3/uL (1.0-4.8) Monocytes # (Auto) 0.7 x10^3/uL (0.0-1.1) Eosinophils # (Auto) 0.1 x10^3/uL (0.0-0.7) Basophils # (Auto) 0.1 x10^3/uL (0.0-0.2) Sodium Level 141 mmol/L (136-145) Potassium Level 3.8 mmol/L (3.5-5.1) Chloride Level 102 mmol/L (98-107) Carbon Dioxide Level 31 mmol/L (21-32) Anion Gap 8 (6-14) Blood Urea Nitrogen 18 mg/dL (7-20) Creatinine 1.1 mg/dL (0.6-1.0) H Estimated GFR (Cockcroft-Gault) 46.9 BUN/Creatinine Ratio 16 (6-20) Glucose Level 139 mg/dL (70-99) H Calcium Level 9.7 mg/dL (8.5-10.1) Total Bilirubin 0.6 mg/dL (0.2-1.0) Aspartate Amino Transferase (AST) 30 U/L (15-37) Alanine Aminotransferase (ALT) 29 U/L (14-59) Alkaline Phosphatase 88 U/L (46-116) Total Protein 7.6 g/dL (6.4-8.2) Albumin 3.4 g/dL (3.4-5.0) Albumin/Globulin Ratio 0.8 (1.0-1.7) L Current Medications: Meds: Current Medications Acetaminophen (Tylenol) 650 mg PRN Q6HRS PRN PO PAIN / TEMP; Start 04/18/17 at 18:15; Stop 04/18/17 at 18:57; Status DC Multi-Ingredient Ointment (Analgesic [place]) 1 shay PRN QID PRN TP MUSCLE PAIN; Start 04/18/17 at 18:15 Al Hydroxide/Mg Hydroxide (Mylanta Plus Xs) 15 ml PRN AFTMEALHC PRN PO DYSPEPSIA; Start 04/18/17 at 18:15 Magnesium Hydroxide (Milk Of Magnesia) 2,400 mg PRN QHS PRN PO CONSTIPATION; Start 04/18/17 at 18:15 Acetaminophen (Tylenol) 650 mg PRN Q4HRS PRN PO PAIN; Start 04/18/17 at 19:00 Buspirone HCl (Buspar) 5 mg BID@0900,1400 PO Last administered on 04/23/17t 14 :19; Start 04/19/17 at 09:00; Stop 04/23/17 at 18:46; Status DC Calcium Carbonate/ Glycine (Tums) 500 mg PRN DAILY PRN PO gi upset; Start at 19:00 Docusate Sodium (Colace) 100 mg PRN BID PRN PO constipation ; Start 04/18/17 at 19:00 Ibuprofen (Motrin) 400 mg PRN Q6HRS PRN PO PAIN; Start 04/18/17 at 19:00 Lorazepam (Ativan) 0.5 mg QHS PO Last administered on 04/21/17 19:47; Start 04/18/17 at 21:00; Stop 04/22/17 at 12:58; Status DC Quetiapine Fumarate (SEROquel) 25 mg BID@0900,1400 PO Last administered on 15:21; Start 04/19/17 at 09:00 Quetiapine Fumarate (SEROquel) 50 mg QHS PO Last administered on 04/25/17 19: 22; Start 04/18/17 at 21:00 Triamcinolone Acetonide (Aristocort) 1 shay PRN DAILY PRN TP RASH; Start at 19:00 Non-Formulary Medication 220 mg BID PO ; Start 04/18/17 at 21:00; Stop at 21:00; Status DC Pantoprazole Sodium (Protonix) 40 mg DAILYAC PO Last administered on 07:31; Start 04/19/17 at 07:30 Ibuprofen (Motrin) 800 mg PRN Q6HRS PRN PO PAIN; Start 04/18/17 at 19:15 Olanzapine (ZyPREXA ZYDIS) 5 mg 1X ONCE PO Last administered on 04/18/17 23: 50; Start 04/19/17 at 00:00; Stop 04/19/17 at 00:01; Status DC Olanzapine (ZyPREXA ZYDIS) 2.5 mg PRN Q2HR PRN PO ANXIETY / AGITATION Last administered on 04/23/17 21:21; Start 04/18/17 at 23:45 Vitamin D (Vitamin D3) 50,000 unit WEEKLY PO ; Start 04/19/17 at 18:00; Stop 04/19/17 at 18:00; Status DC Mirtazapine (Remeron) 15 mg QHS PO Last administered on 04/25/17 19:22; Start 04/19/17 at 21:00 Vitamin D (Vitamin D3) 50,000 unit WEEKLY PO Last administered on 04/19/17 19 :32; Start 04/19/17 at 21:00 Vitamin D (Vitamin D3) 50,000 unit WEEKLY PO ; Start 04/21/17 at 19:00; Status UNV Lorazepam (Ativan) 0.25 mg QHS PO Last administered on 04/24/17 19:52; Start 04/22/17 at 21:00; Stop 04/24/17 at 21:01; Status DC Buspirone HCl (Buspar) 5 mg TID@0900,1400,1700 PO Last administered on 16:53; Start 04/24/17 at 09:00; Stop 04/25/17 at 18:38; Status DC Buspirone HCl (Buspar) 10 mg TID@0900,1400,1700 PO ; Start 04/26/17 at 09:00 Trazodone HCl (Desyrel) 50 mg QHS PO Last administered on 04/25/17 19:23; Start 04/25/17 at 21:00 Trazodone HCl (Desyrel) 50 mg PRN QHS PRN PO INSOMNIA; Start 04/25/17 at 18:45 Active Scripts Active Reported Tylenol (Acetaminophen) 325 Mg Tablet 650 Mg PO PRN Q4HRS PRN Triamcinolone Acetonide 15 Gm Cream..g. 1 Shay TP PRN DAILY PRN Ibuprofen 400 Mg Tablet 1-2 Tab PO Tums (Calcium Carbonate) 200 Mg Tab.chew 2 Tab PO PRN Q6-8HRS PRN Maalox Advanced Suspension (Mag Hydrox/Aluminum Hyd/Simeth) 355 Ml Oral.susp 30 Ml PO Colace (Docusate Sodium) 100 Mg Capsule 100 Mg PO PRN BID PRN Lorazepam 0.5 Mg Tablet 0.5 Mg PO QHS Buspirone Hcl 5 Mg Tablet 5 Mg PO BID@0900,1400 Seroquel (Quetiapine Fumarate) 25 Mg Tablet 25 Mg PO BID@0900,1400 Seroquel (Quetiapine Fumarate) 50 Mg Tablet 50 Mg PO QHS Multivitamins (Multivitamin) 1 Each Tablet 1 Each PO Omeprazole 20 Mg Capsule.dr 20 Mg PO DAILY08 Aleve (Naproxen Sodium) 220 Mg Tablet 220 Mg PO BID I have reviewed the current psychotropics carefully including drug interactions. Risk benefit ratio favors no change other than as noted in my dictated progress note. 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
[2017-04-26 05:51] VITALS: BP 141/65
--- NOTE | 2017-04-26 09:57 | PN ---
DATE: 04/24/2017 PSYCHIATRIC PROGRESS NOTE This is a late entry for 04/24/2017 covers elements not covered in my initial note of 04/24/2017. SUBJECTIVE: I met with the patient evening of 04/24/2017. The patient slept 4-1/2 hours previous evening, somewhat resistive to medications previous evening, pleasant, confused during the day on 04/24/2017. Short term memory is very poor. REVIEW OF SYSTEMS: No CV, , pulmonary, eye system symptoms on review. Reliability poor. Gait unsteady in wheelchair. MENTAL STATUS EXAM: Oriented to herself. Insight, judgment, recent and remote memory, attention, concentration, fund of knowledge poor, consistent with her diagnosis mentioned in my initial note. PLAN: Continue psychotropics mentioned in my initial note. BuSpar was adjusted and we may have to change it further depending on her anxiety symptoms and how she responds to it. MATTI THOMAS MD DR: ALTON/michael JOB#: [id number] / [id number]
[2017-04-26] MEDS: PANTOPRAZOLE 40 MG TABLET. PO SCH (10:05)
[2017-04-26] MEDS: QUEtiapine 25 MG TABLET. PO SCH ×2 (10:05→14:22)
[2017-04-26] MEDS: CHOLECALCIFEROL (VITAMIN D3) 50,000 UNIT CAPSULE PO SCH (10:07)
[2017-04-26] MEDS: busPIRone 10 MG TABLET. PO SCH ×3 (10:07→17:01)
[2017-04-26 15:54] VITALS: BP 130/79
--- NOTE | 2017-04-26 16:28 | EKG ---
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
--- NOTE | 2017-04-26 20:00 | PDOC ---
Exam Note: Reginaldo Note: Please also refer to the separate dictated note~for this date of service dictated separately.~Patient seen individually. Discussed the patient with Nursing staff reviewed the chart.~Reviewed interim history and current functioning. Reviewed vital signs,~Labs/ Radiology~and current medications noted below. Continue current treatment with the changes noted in the dictated addendum note Assessment: Vital Signs: Vital Signs Date Time Temp Pulse Resp B/P (MAP) Pulse Ox O2 Delivery O2 Flow Rate FiO2 04/26/17 15:54 97.1 88 16 130/79 (96) 97 Room Air I&O Intake and Output 04/26/17 07:00 Intake Total 840 ml Balance 840 ml Intake Oral 840 ml # Voids 1 # Bowel Movements 1 Current Medications: Meds: Current Medications Acetaminophen (Tylenol) 650 mg PRN Q6HRS PRN PO PAIN / TEMP; Start 04/18/17 at 18:15; Stop 04/18/17 at 18:57; Status DC Multi-Ingredient Ointment (Analgesic [place]) 1 shay PRN QID PRN TP MUSCLE PAIN; Start 04/18/17 at 18:15 Al Hydroxide/Mg Hydroxide (Mylanta Plus Xs) 15 ml PRN AFTMEALHC PRN PO DYSPEPSIA; Start 04/18/17 at 18:15 Magnesium Hydroxide (Milk Of Magnesia) 2,400 mg PRN QHS PRN PO CONSTIPATION; Start 04/18/17 at 18:15 Acetaminophen (Tylenol) 650 mg PRN Q4HRS PRN PO PAIN; Start 04/18/17 at 19:00 Buspirone HCl (Buspar) 5 mg BID@0900,1400 PO Last administered on 04/23/17t 14 :19; Start 04/19/17 at 09:00; Stop 04/23/17 at 18:46; Status DC Calcium Carbonate/ Glycine (Tums) 500 mg PRN DAILY PRN PO gi upset; Start at 19:00 Docusate Sodium (Colace) 100 mg PRN BID PRN PO constipation ; Start 04/18/17 at 19:00 Ibuprofen (Motrin) 400 mg PRN Q6HRS PRN PO PAIN; Start 04/18/17 at 19:00 Lorazepam (Ativan) 0.5 mg QHS PO Last administered on 04/21/17 19:47; Start 04/18/17 at 21:00; Stop 04/22/17 at 12:58; Status DC Quetiapine Fumarate (SEROquel) 25 mg BID@0900,1400 PO Last administered on 14:22; Start 04/19/17 at 09:00 Quetiapine Fumarate (SEROquel) 50 mg QHS PO Last administered on 04/25/17 19: 22; Start 04/18/17 at 21:00 Triamcinolone Acetonide (Aristocort) 1 shay PRN DAILY PRN TP RASH; Start at 19:00 Non-Formulary Medication 220 mg BID PO ; Start 04/18/17 at 21:00; Stop at 21:00; Status DC Pantoprazole Sodium (Protonix) 40 mg DAILYAC PO Last administered on 10:05; Start 04/19/17 at 07:30 Ibuprofen (Motrin) 800 mg PRN Q6HRS PRN PO PAIN; Start 04/18/17 at 19:15 Olanzapine (ZyPREXA ZYDIS) 5 mg 1X ONCE PO Last administered on 04/18/17 23: 50; Start 04/19/17 at 00:00; Stop 04/19/17 at 00:01; Status DC Olanzapine (ZyPREXA ZYDIS) 2.5 mg PRN Q2HR PRN PO ANXIETY / AGITATION Last administered on 04/23/17 21:21; Start 04/18/17 at 23:45 Vitamin D (Vitamin D3) 50,000 unit WEEKLY PO ; Start 04/19/17 at 18:00; Stop 04/19/17 at 18:00; Status DC Mirtazapine (Remeron) 15 mg QHS PO Last administered on 04/25/17 19:22; Start 04/19/17 at 21:00 Vitamin D (Vitamin D3) 50,000 unit WEEKLY PO Last administered on 04/26/17 10 :07; Start 04/19/17 at 21:00 Vitamin D (Vitamin D3) 50,000 unit WEEKLY PO ; Start 04/21/17 at 19:00; Status UNV Lorazepam (Ativan) 0.25 mg QHS PO Last administered on 11/28/17at 19:52; Start 04/22/17 at 21:00; Stop 04/24/17 at 21:01; Status DC Buspirone HCl (Buspar) 5 mg TID@0900,1400,1700 PO Last administered on 16:53; Start 04/24/17 at 09:00; Stop 04/25/17 at 18:38; Status DC Buspirone HCl (Buspar) 10 mg TID@0900,1400,1700 PO Last administered on 17:01; Start 04/26/17 at 09:00 Trazodone HCl (Desyrel) 50 mg QHS PO Last administered on 04/25/17 19:23; Start 04/25/17 at 21:00 Trazodone HCl (Desyrel) 50 mg PRN QHS PRN PO INSOMNIA; Start 04/25/17 at 18:45 Active Scripts Active Reported Tylenol (Acetaminophen) 325 Mg Tablet 650 Mg PO PRN Q4HRS PRN Triamcinolone Acetonide 15 Gm Cream..g. 1 Shay TP PRN DAILY PRN Ibuprofen 400 Mg Tablet 1-2 Tab PO Tums (Calcium Carbonate) 200 Mg Tab.chew 2 Tab PO PRN Q6-8HRS PRN Maalox Advanced Suspension (Mag Hydrox/Aluminum Hyd/Simeth) 355 Ml Oral.susp 30 Ml PO Colace (Docusate Sodium) 100 Mg Capsule 100 Mg PO PRN BID PRN Lorazepam 0.5 Mg Tablet 0.5 Mg PO QHS Buspirone Hcl 5 Mg Tablet 5 Mg PO BID@0900,1400 Seroquel (Quetiapine Fumarate) 25 Mg Tablet 25 Mg PO BID@0900,1400 Seroquel (Quetiapine Fumarate) 50 Mg Tablet 50 Mg PO QHS Multivitamins (Multivitamin) 1 Each Tablet 1 Each PO Omeprazole 20 Mg Capsule.dr 20 Mg PO DAILY08 Aleve (Naproxen Sodium) 220 Mg Tablet 220 Mg PO BID I have reviewed the current psychotropics carefully including drug interactions. Risk benefit ratio favors no change other than as noted in my dictated progress note. 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
[2017-04-26] MEDS: traZODone 50 MG TABLET. PO SCH (20:06)
[2017-04-26] MEDS: MIRTAZAPINE 15 MG TABLET PO SCH (20:06)
[2017-04-26] MEDS: QUEtiapine 50 MG TABLET. PO SCH (20:06)
[2017-04-27 05:41] VITALS: BP 133/75
[2017-04-27] MEDS: PANTOPRAZOLE 40 MG TABLET. PO SCH (07:35)
[2017-04-27] MEDS: QUEtiapine 25 MG TABLET. PO SCH ×2 (07:35→13:45)
[2017-04-27] MEDS: busPIRone 10 MG TABLET. PO SCH ×3 (07:35→17:22)
--- NOTE | 2017-04-27 12:14 | PDOC2 ---
CONSULT Date of Admission DATE: 04/27/17 TIME: 12:03 Reason for Consult: atrial fibrillation , new onset History of Present Illness Ms Schwarz is an 87 year old female admitted to [facility] for symptoms of not sleeping, yelling, screaming all through the night, throwing stuff agitated, increased aggression and also falling to the floor. She was noted to have an irregular heart beat and EKG revealed atrial fibrillation. As she had no documented history of this, consult was called. She has Alzheimer type dementia and is unable to give history. She currently reports her age as 19 years. She denies chest discomfort, palpitations, lightheadedness, dyspnea or congestive symptoms currently. History is obtained from the chart. Past Medical History PAST MEDICAL HISTORY: Significant for hypertension, osteoarthritis, anemia, ataxia, recurrent falls. Past Surgical History PAST SURGICAL HISTORY: Unremarkable, although the patient stated that she has appendectomy and cholecystectomy. Family History FAMILY HISTORY: Unobtainable but non contributory secondary to age Social History SOCIAL HISTORY: She apparently is a resident at [facility]. 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 She does not smoke, drink alcohol, or use any recreational drugs. Current Medications Current Medications Acetaminophen (Tylenol) 650 mg PRN Q6HRS PRN PO PAIN / TEMP; Start 04/18/17 at 18:15; Stop 04/18/17 at 18:57; Status DC Multi-Ingredient Ointment (Analgesic [place]) 1 shay PRN QID PRN TP MUSCLE PAIN; Start 04/18/17 at 18:15 Al Hydroxide/Mg Hydroxide (Mylanta Plus Xs) 15 ml PRN AFTMEALHC PRN PO DYSPEPSIA; Start 04/18/17 at 18:15 Magnesium Hydroxide (Milk Of Magnesia) 2,400 mg PRN QHS PRN PO CONSTIPATION; Start 04/18/17 at 18:15 Acetaminophen (Tylenol) 650 mg PRN Q4HRS PRN PO PAIN; Start 04/18/17 at 19:00 Buspirone HCl (Buspar) 5 mg BID@0900,1400 PO Last administered on 04/23/17t 14 :19; Start 04/19/17 at 09:00; Stop 04/23/17 at 18:46; Status DC Calcium Carbonate/ Glycine (Tums) 500 mg PRN DAILY PRN PO gi upset; Start at 19:00 Docusate Sodium (Colace) 100 mg PRN BID PRN PO constipation ; Start 04/18/17 at 19:00 Ibuprofen (Motrin) 400 mg PRN Q6HRS PRN PO PAIN; Start 04/18/17 at 19:00 Lorazepam (Ativan) 0.5 mg QHS PO Last administered on 04/21/17 19:47; Start 04/18/17 at 21:00; Stop 04/22/17 at 12:58; Status DC Quetiapine Fumarate (SEROquel) 25 mg BID@0900,1400 PO Last administered on 04/27 07:35; Start 04/19/17 at 09:00 Quetiapine Fumarate (SEROquel) 50 mg QHS PO Last administered on 04/26/17 20: 06; Start 04/18/17 at 21:00 Triamcinolone Acetonide (Aristocort) 1 shay PRN DAILY PRN TP RASH; Start at 19:00 Non-Formulary Medication 220 mg BID PO ; Start 04/18/17 at 21:00; Stop at 21:00; Status DC Pantoprazole Sodium (Protonix) 40 mg DAILYAC PO Last administered on 04/27/17 07:35; Start 04/19/17 at 07:30 Ibuprofen (Motrin) 800 mg PRN Q6HRS PRN PO PAIN; Start 04/18/17 at 19:15 Olanzapine (ZyPREXA ZYDIS) 5 mg 1X ONCE PO Last administered on 04/18/17 23: 50; Start 04/19/17 at 00:00; Stop 04/19/17 at 00:01; Status DC Olanzapine (ZyPREXA ZYDIS) 2.5 mg PRN Q2HR PRN PO ANXIETY / AGITATION Last administered on 04/23/17 21:21; Start 04/18/17 at 23:45 Vitamin D (Vitamin D3) 50,000 unit WEEKLY PO ; Start 04/19/17 at 18:00; Stop 04/19/17 at 18:00; Status DC Mirtazapine (Remeron) 15 mg QHS PO Last administered on 04/26/17 20:06; Start 04/19/17 at 21:00 Vitamin D (Vitamin D3) 50,000 unit WEEKLY PO Last administered on 04/26/17 10 :07; Start 04/19/17 at 21:00 Vitamin D (Vitamin D3) 50,000 unit WEEKLY PO ; Start 04/21/17 at 19:00; Status UNV Lorazepam (Ativan) 0.25 mg QHS PO Last administered on 04/24/17 19:52; Start 04/22/17 at 21:00; Stop 04/24/17 at 21:01; Status DC Buspirone HCl (Buspar) 5 mg TID@0900,1400,1700 PO Last administered on 16:53; Start 04/24/17 at 09:00; Stop 04/25/17 at 18:38; Status DC Buspirone HCl (Buspar) 10 mg TID@0900,1400,1700 PO Last administered on 07:35; Start 04/26/17 at 09:00 Trazodone HCl (Desyrel) 50 mg QHS PO Last administered on 04/26/17 20:06; Start 04/25/17 at 21:00 Trazodone HCl (Desyrel) 50 mg PRN QHS PRN PO INSOMNIA; Start 04/25/17 at 18:45 Active Scripts Active Reported Tylenol (Acetaminophen) 325 Mg Tablet 650 Mg PO PRN Q4HRS PRN Triamcinolone Acetonide 15 Gm Cream..g. 1 Shay TP PRN DAILY PRN Ibuprofen 400 Mg Tablet 1-2 Tab PO Tums (Calcium Carbonate) 200 Mg Tab.chew 2 Tab PO PRN Q6-8HRS PRN Maalox Advanced Suspension (Mag Hydrox/Aluminum Hyd/Simeth) 355 Ml Oral.susp 30 Ml PO Colace (Docusate Sodium) 100 Mg Capsule 100 Mg PO PRN BID PRN Lorazepam 0.5 Mg Tablet 0.5 Mg PO QHS Buspirone Hcl 5 Mg Tablet 5 Mg PO BID@0900,1400 Seroquel (Quetiapine Fumarate) 25 Mg Tablet 25 Mg PO BID@0900,1400 Seroquel (Quetiapine Fumarate) 50 Mg Tablet 50 Mg PO QHS Multivitamins (Multivitamin) 1 Each Tablet 1 Each PO Omeprazole 20 Mg Capsule.dr 20 Mg PO DAILY08 Aleve (Naproxen Sodium) 220 Mg Tablet 220 Mg PO BID Allergies: Coded Allergies: cefuroxime (Verified Allergy, Intermediate, rash, 04/23/17) Review of System unobtainable due to mental status General: Alert, Cooperative, No acute distress HEENT: Atraumatic, EOMI Lungs: Clear to auscultation, Normal air movement Heart: Other (irregular rhythm without significant murmurs, no gallops, clicks or rubs) Abdomen: Normal bowel sounds, Soft, No tenderness Extremities: No cyanosis, No edema, Normal pulses Neuro: Normal speech, Strength at 5/5 X4 ext Psych/Mental Status: Mood NL VITALS Vital Signs Date Time Temp Pulse Resp B/P (MAP) Pulse Ox O2 Delivery O2 Flow Rate FiO2 04/27/17 05:41 98.7 82 16 133/75 (94) 96 04/26/17 15:54 Room Air Labs reviewed. Images EKG - atrial fibrillation with controlled ventricular response, no acute ischemic changes Assessment/Plan 1. Atrial fibrillation duration unknown - I suspect this is not new. Her rate is well controlled. [id number] would indicate need for anticoagulation, however due to history of frequent falls she is not a good candidate. Would recommend aspirin only. 2. hypertension - pressure is currently well controlled. She does appear to have somewhat labile pressures. Would continue to monitor and suggest outpatient echo for LV function, effect of HTN and valvular function. 3. dementia - as per Psych. Problems: CARYN VICTOR APRN Apr 27, 2017 12:14
[2017-04-27 15:50] VITALS: BP 98/54
--- NOTE | 2017-04-27 20:21 | PDOC ---
Exam Note: Reginaldo Note: Please also refer to the separate dictated note~for this date of service dictated separately.~Patient seen individually. Discussed the patient with Nursing staff reviewed the chart.~Reviewed interim history and current functioning. Reviewed vital signs,~Labs/ Radiology~and current medications noted below. Continue current treatment with the changes noted in the dictated addendum note Assessment: Vital Signs: Vital Signs Date Time Temp Pulse Resp B/P (MAP) Pulse Ox O2 Delivery O2 Flow Rate FiO2 04/27/17 15:50 97.5 88 18 98/54 (69) 100 04/26/17 15:54 Room Air I&O Intake and Output 04/27/17 07:00 Intake Total 1440 ml Balance 1440 ml Intake Oral 1440 ml # Bowel Movements 1 Current Medications: Meds: Current Medications Acetaminophen (Tylenol) 650 mg PRN Q6HRS PRN PO PAIN / TEMP; Start 04/18/17 at 18:15; Stop 04/18/17 at 18:57; Status DC Multi-Ingredient Ointment (Analgesic [place]) 1 shay PRN QID PRN TP MUSCLE PAIN; Start 04/18/17 at 18:15 Al Hydroxide/Mg Hydroxide (Mylanta Plus Xs) 15 ml PRN AFTMEALHC PRN PO DYSPEPSIA; Start 04/18/17 at 18:15 Magnesium Hydroxide (Milk Of Magnesia) 2,400 mg PRN QHS PRN PO CONSTIPATION; Start 04/18/17 at 18:15 Acetaminophen (Tylenol) 650 mg PRN Q4HRS PRN PO PAIN; Start 04/18/17 at 19:00 Buspirone HCl (Buspar) 5 mg BID@0900,1400 PO Last administered on 04/23/17t 14 :19; Start 04/19/17 at 09:00; Stop 04/23/17 at 18:46; Status DC Calcium Carbonate/ Glycine (Tums) 500 mg PRN DAILY PRN PO gi upset; Start at 19:00 Docusate Sodium (Colace) 100 mg PRN BID PRN PO constipation ; Start 04/18/17 at 19:00 Ibuprofen (Motrin) 400 mg PRN Q6HRS PRN PO PAIN; Start 04/18/17 at 19:00 Lorazepam (Ativan) 0.5 mg QHS PO Last administered on 04/21/17 19:47; Start 04/18/17 at 21:00; Stop 04/22/17 at 12:58; Status DC Quetiapine Fumarate (SEROquel) 25 mg BID@0900,1400 PO Last administered on 04/27 13:45; Start 04/19/17 at 09:00 Quetiapine Fumarate (SEROquel) 50 mg QHS PO Last administered on 04/26/17 20: 06; Start 04/18/17 at 21:00 Triamcinolone Acetonide (Aristocort) 1 shay PRN DAILY PRN TP RASH; Start at 19:00 Non-Formulary Medication 220 mg BID PO ; Start 04/18/17 at 21:00; Stop at 21:00; Status DC Pantoprazole Sodium (Protonix) 40 mg DAILYAC PO Last administered on 04/27/17 07:35; Start 04/19/17 at 07:30 Ibuprofen (Motrin) 800 mg PRN Q6HRS PRN PO PAIN; Start 04/18/17 at 19:15 Olanzapine (ZyPREXA ZYDIS) 5 mg 1X ONCE PO Last administered on 04/18/17 23: 50; Start 04/19/17 at 00:00; Stop 04/19/17 at 00:01; Status DC Olanzapine (ZyPREXA ZYDIS) 2.5 mg PRN Q2HR PRN PO ANXIETY / AGITATION Last administered on 04/23/17 21:21; Start 04/18/17 at 23:45 Vitamin D (Vitamin D3) 50,000 unit WEEKLY PO ; Start 04/19/17 at 18:00; Stop 04/19/17 at 18:00; Status DC Mirtazapine (Remeron) 15 mg QHS PO Last administered on 04/26/17 20:06; Start 04/19/17 at 21:00 Vitamin D (Vitamin D3) 50,000 unit WEEKLY PO Last administered on 04/26/17 10 :07; Start 04/19/17 at 21:00 Vitamin D (Vitamin D3) 50,000 unit WEEKLY PO ; Start 04/21/17 at 19:00; Status UNV Lorazepam (Ativan) 0.25 mg QHS PO Last administered on 04/24/17 19:52; Start 04/22/17 at 21:00; Stop 04/24/17 at 21:01; Status DC Buspirone HCl (Buspar) 5 mg TID@0900,1400,1700 PO Last administered on 16:53; Start 04/24/17 at 09:00; Stop 04/25/17 at 18:38; Status DC Buspirone HCl (Buspar) 10 mg TID@0900,1400,1700 PO Last administered on 17:22; Start 04/26/17 at 09:00 Trazodone HCl (Desyrel) 50 mg QHS PO Last administered on 04/26/17 20:06; Start 04/25/17 at 21:00 Trazodone HCl (Desyrel) 50 mg PRN QHS PRN PO INSOMNIA; Start 04/25/17 at 18:45 Aspirin (Aspirin Enteric Coated) 162 mg DAILYWBKFT PO ; Start 04/28/17 at 08:00 Active Scripts Active Reported Tylenol (Acetaminophen) 325 Mg Tablet 650 Mg PO PRN Q4HRS PRN Triamcinolone Acetonide 15 Gm Cream..g. 1 Shay TP PRN DAILY PRN Ibuprofen 400 Mg Tablet 1-2 Tab PO Tums (Calcium Carbonate) 200 Mg Tab.chew 2 Tab PO PRN Q6-8HRS PRN Maalox Advanced Suspension (Mag Hydrox/Aluminum Hyd/Simeth) 355 Ml Oral.susp 30 Ml PO Colace (Docusate Sodium) 100 Mg Capsule 100 Mg PO PRN BID PRN Lorazepam 0.5 Mg Tablet 0.5 Mg PO QHS Buspirone Hcl 5 Mg Tablet 5 Mg PO BID@0900,1400 Seroquel (Quetiapine Fumarate) 25 Mg Tablet 25 Mg PO BID@0900,1400 Seroquel (Quetiapine Fumarate) 50 Mg Tablet 50 Mg PO QHS Multivitamins (Multivitamin) 1 Each Tablet 1 Each PO Omeprazole 20 Mg Capsule.dr 20 Mg PO DAILY08 Aleve (Naproxen Sodium) 220 Mg Tablet 220 Mg PO BID I have reviewed the current psychotropics carefully including drug interactions. Risk benefit ratio favors no change other than as noted in my dictated progress note. 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
[2017-04-27] MEDS: traZODone 50 MG TABLET. PO SCH (20:25)
[2017-04-27] MEDS: QUEtiapine 50 MG TABLET. PO SCH (20:25)
[2017-04-27] MEDS: MIRTAZAPINE 15 MG TABLET PO SCH (20:25)
--- NOTE | 2017-04-28 01:33 | PN ---
DATE: 04/25/2017 PSYCHIATRIC PROGRESS NOTE This is a late entry for 04/25/2017, covers the elements not covered in my initial note. SUBJECTIVE: The patient slept 2 hours previous evening, pleasant, smiling, confused, towards the evening she was more tired, compliant with the medications. At the snf, history reveals she is frequently requesting to go to the bathroom up all night long. REVIEW OF SYSTEMS: Ambulation impaired, in wheelchair. No CV, , pulmonary, eye system symptoms on review. MENTAL STATUS EXAM: Oriented to herself. Insight, judgment, recent and remote memory, attention, concentration, fund of knowledge poor, consistent with her diagnosis mentioned in my initial note. PLAN: Start trazodone 50 mg scheduled at bedtime, may repeat x 1 for insomnia. BuSconcepcion is currently 5 mg twice a day and 1700 hours. We will increase it to 10 mg 3 times a day for her ongoing anxiety. Maintain rest of the psychotropics including Remeron 15 mg at bedtime, Seroquel 25 mg b.i.d., 50 mg at bedtime, Zyprexa p.r.n. Adjust further as clinically indicated. MAN Abiodun THOMAS MD DR: ALTON/michael JOB#: [id number] / [id number]
--- NOTE | 2017-04-28 01:45 | PN ---
DATE: 04/26/2017 This late entry 04/26/2017 covers elements not covered in my initial note 04/26/2017. I met with the patient evening of 04/26/2017. The patient was staffed at a treatment team meeting with the entire team morning of 04/26/2017 and the patient's daughter, Leda, and son, attended the conference. The patient is sleeping 4-6 hours, slept 7-3/4 hours previous evening after she received the trazodone. Appetite 60-75%. She gets confused, felt she was at school, but has a good sense of humor. REVIEW OF SYSTEMS: Ambulation impaired. No CV, , pulmonary, eye system symptoms on review. She is in a wheelchair. MENTAL STATUS EXAM: Oriented to herself. Insight, judgment, recent and remote memory, attention, concentration, fund of knowledge poor, consistent with her diagnosis mentioned in my initial note. Reviewed history, progress. Discussed current medication side effects at length with the family and answered their questions. IMPRESSION: Unchanged from initial note. PLAN: Continue psychotropics mentioned in my initial note for now. MAN Abiodun THOMAS MD DR: ALTON/michael JOB#: [id number] / [id number]
[2017-04-28 05:59] VITALS: BP 138/89
[2017-04-28] MEDS: QUEtiapine 25 MG TABLET. PO SCH ×2 (07:40→13:52)
[2017-04-28] MEDS: busPIRone 10 MG TABLET. PO SCH ×3 (07:40→17:37)
[2017-04-28] MEDS: PANTOPRAZOLE 40 MG TABLET. PO SCH (07:40)
[2017-04-28] MEDS: ASPIRIN ENTERIC COATED 81 MG TABLET.DR. PO SCH (07:41)
[2017-04-28 16:28] VITALS: BP 154/68
[2017-04-28] MEDS: MIRTAZAPINE 15 MG TABLET PO SCH (21:12)
[2017-04-28] MEDS: traZODone 50 MG TABLET. PO SCH (21:13)
[2017-04-28] MEDS: QUEtiapine 50 MG TABLET. PO SCH (21:13)
[2017-04-28] MEDS: traZODone 50 MG TABLET. PO PRN (21:44)
--- NOTE | 2017-04-28 21:47 | PDOC ---
Exam Note: Reginaldo Note: Please also refer to the separate dictated note~for this date of service dictated separately.~Patient seen individually. Discussed the patient with Nursing staff reviewed the chart.~Reviewed interim history and current functioning. Reviewed vital signs,~Labs/ Radiology~and current medications noted below. Continue current treatment with the changes noted in the dictated addendum note Assessment: Vital Signs: Vital Signs Date Time Temp Pulse Resp B/P (MAP) Pulse Ox O2 Delivery O2 Flow Rate FiO2 04/28/17 16:28 97.9 87 20 154/68 (96) 97 04/26/17 15:54 Room Air I&O Intake and Output 04/28/17 07:00 Intake Total 1000 ml Balance 1000 ml Intake Oral 1000 ml # Voids 1 # Bowel Movements 2 Current Medications: Meds: Current Medications Acetaminophen (Tylenol) 650 mg PRN Q6HRS PRN PO PAIN / TEMP; Start 04/18/17 at 18:15; Stop 04/18/17 at 18:57; Status DC Multi-Ingredient Ointment (Analgesic [place]) 1 shay PRN QID PRN TP MUSCLE PAIN; Start 04/18/17 at 18:15 Al Hydroxide/Mg Hydroxide (Mylanta Plus Xs) 15 ml PRN AFTMEALHC PRN PO DYSPEPSIA; Start 04/18/17 at 18:15 Magnesium Hydroxide (Milk Of Magnesia) 2,400 mg PRN QHS PRN PO CONSTIPATION; Start 04/18/17 at 18:15 Acetaminophen (Tylenol) 650 mg PRN Q4HRS PRN PO PAIN; Start 04/18/17 at 19:00 Buspirone HCl (Buspar) 5 mg BID@0900,1400 PO Last administered on 04/23/17t 14 :19; Start 04/19/17 at 09:00; Stop 04/23/17 at 18:46; Status DC Calcium Carbonate/ Glycine (Tums) 500 mg PRN DAILY PRN PO gi upset; Start at 19:00 Docusate Sodium (Colace) 100 mg PRN BID PRN PO constipation ; Start 04/18/17 at 19:00 Ibuprofen (Motrin) 400 mg PRN Q6HRS PRN PO PAIN; Start 04/18/17 at 19:00 Lorazepam (Ativan) 0.5 mg QHS PO Last administered on 04/21/17 19:47; Start 04/18/17 at 21:00; Stop 04/22/17 at 12:58; Status DC Quetiapine Fumarate (SEROquel) 25 mg BID@0900,1400 PO Last administered on 04/28 13:52; Start 04/19/17 at 09:00 Quetiapine Fumarate (SEROquel) 50 mg QHS PO Last administered on 04/28/17 21: 13; Start 04/18/17 at 21:00 Triamcinolone Acetonide (Aristocort) 1 shay PRN DAILY PRN TP RASH; Start at 19:00 Non-Formulary Medication 220 mg BID PO ; Start 04/18/17 at 21:00; Stop at 21:00; Status DC Pantoprazole Sodium (Protonix) 40 mg DAILYAC PO Last administered on 04/28/17 07:40; Start 04/19/17 at 07:30 Ibuprofen (Motrin) 800 mg PRN Q6HRS PRN PO PAIN; Start 04/18/17 at 19:15 Olanzapine (ZyPREXA ZYDIS) 5 mg 1X ONCE PO Last administered on 04/18/17 23: 50; Start 04/19/17 at 00:00; Stop 04/19/17 at 00:01; Status DC Olanzapine (ZyPREXA ZYDIS) 2.5 mg PRN Q2HR PRN PO ANXIETY / AGITATION Last administered on 04/23/17 21:21; Start 04/18/17 at 23:45 Vitamin D (Vitamin D3) 50,000 unit WEEKLY PO ; Start 04/19/17 at 18:00; Stop 04/19/17 at 18:00; Status DC Mirtazapine (Remeron) 15 mg QHS PO Last administered on 04/28/17 21:12; Start 04/19/17 at 21:00 Vitamin D (Vitamin D3) 50,000 unit WEEKLY PO Last administered on 04/26/17 10 :07; Start 04/19/17 at 21:00 Vitamin D (Vitamin D3) 50,000 unit WEEKLY PO ; Start 04/21/17 at 19:00; Status UNV Lorazepam (Ativan) 0.25 mg QHS PO Last administered on 04/24/17 19:52; Start 04/22/17 at 21:00; Stop 04/24/17 at 21:01; Status DC Buspirone HCl (Buspar) 5 mg TID@0900,1400,1700 PO Last administered on 16:53; Start 04/24/17 at 09:00; Stop 04/25/17 at 18:38; Status DC Buspirone HCl (Buspar) 10 mg TID@0900,1400,1700 PO Last administered on 17:37; Start 04/26/17 at 09:00 Trazodone HCl (Desyrel) 50 mg QHS PO Last administered on 04/27/17 20:25; Start 04/25/17 at 21:00; Stop 04/28/17 at 18:39; Status DC Trazodone HCl (Desyrel) 50 mg PRN QHS PRN PO INSOMNIA Last administered on 04/28 00:59; Start 04/25/17 at 18:45; Stop 04/28/17 at 18:39; Status DC Aspirin (Aspirin Enteric Coated) 162 mg DAILYWBKFT PO Last administered on 04/28 07:41; Start 04/28/17 at 08:00 Trazodone HCl (Desyrel) 75 mg PRN QHS PRN PO INSOMNIA Last administered on 04/28 21:44; Start 04/28/17 at 18:45 Trazodone HCl (Desyrel) 75 mg QHS PO Last administered on 04/28/17 21:13; Start 04/28/17 at 21:00 Active Scripts Active Reported Tylenol (Acetaminophen) 325 Mg Tablet 650 Mg PO PRN Q4HRS PRN Triamcinolone Acetonide 15 Gm Cream..g. 1 Shay TP PRN DAILY PRN Ibuprofen 400 Mg Tablet 1-2 Tab PO Tums (Calcium Carbonate) 200 Mg Tab.chew 2 Tab PO PRN Q6-8HRS PRN Maalox Advanced Suspension (Mag Hydrox/Aluminum Hyd/Simeth) 355 Ml Oral.susp 30 Ml PO Colace (Docusate Sodium) 100 Mg Capsule 100 Mg PO PRN BID PRN Lorazepam 0.5 Mg Tablet 0.5 Mg PO QHS Buspirone Hcl 5 Mg Tablet 5 Mg PO BID@0900,1400 Seroquel (Quetiapine Fumarate) 25 Mg Tablet 25 Mg PO BID@0900,1400 Seroquel (Quetiapine Fumarate) 50 Mg Tablet 50 Mg PO QHS Multivitamins (Multivitamin) 1 Each Tablet 1 Each PO Omeprazole 20 Mg Capsule.dr 20 Mg PO DAILY08 Aleve (Naproxen Sodium) 220 Mg Tablet 220 Mg PO BID I have reviewed the current psychotropics carefully including drug interactions. Risk benefit ratio favors no change other than as noted in my dictated progress note. 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
[2017-04-29 05:51] VITALS: BP 149/79
[2017-04-29] MEDS: PANTOPRAZOLE 40 MG TABLET. PO SCH (07:46)
[2017-04-29] MEDS: busPIRone 10 MG TABLET. PO SCH ×3 (07:46→16:57)
[2017-04-29] MEDS: QUEtiapine 25 MG TABLET. PO SCH ×2 (07:46→14:00)
[2017-04-29] MEDS: ASPIRIN ENTERIC COATED 81 MG TABLET.DR. PO SCH (07:46)
[2017-04-29 16:12] VITALS: BP 154/77
[2017-04-29] MEDS: MIRTAZAPINE 15 MG TABLET PO SCH (19:27)
[2017-04-29] MEDS: traZODone 50 MG TABLET. PO SCH (19:27)
[2017-04-29] MEDS: QUEtiapine 50 MG TABLET. PO SCH (19:27)
--- NOTE | 2017-04-29 20:02 | PDOC ---
Exam Note: Reginaldo Note: Please also refer to the separate dictated note~for this date of service dictated separately.~Patient seen individually. Discussed the patient with Nursing staff reviewed the chart.~Reviewed interim history and current functioning. Reviewed vital signs,~Labs/ Radiology~and current medications noted below. Continue current treatment with the changes noted in the dictated addendum note Assessment: Vital Signs: Vital Signs Date Time Temp Pulse Resp B/P (MAP) Pulse Ox O2 Delivery O2 Flow Rate FiO2 04/29/17 16:12 98.3 85 18 154/77 (102) 96 0.0 04/26/17 15:54 Room Air I&O Intake and Output 04/29/17 07:00 Intake Total 600 ml Balance 600 ml Intake Oral 600 ml Current Medications: Meds: Current Medications Acetaminophen (Tylenol) 650 mg PRN Q6HRS PRN PO PAIN / TEMP; Start 04/18/17 at 18:15; Stop 04/18/17 at 18:57; Status DC Multi-Ingredient Ointment (Analgesic [place]) 1 shay PRN QID PRN TP MUSCLE PAIN; Start 04/18/17 at 18:15 Al Hydroxide/Mg Hydroxide (Mylanta Plus Xs) 15 ml PRN AFTMEALHC PRN PO DYSPEPSIA; Start 04/18/17 at 18:15 Magnesium Hydroxide (Milk Of Magnesia) 2,400 mg PRN QHS PRN PO CONSTIPATION; Start 04/18/17 at 18:15 Acetaminophen (Tylenol) 650 mg PRN Q4HRS PRN PO PAIN; Start 04/18/17 at 19:00 Buspirone HCl (Buspar) 5 mg BID@0900,1400 PO Last administered on 04/23/17 14 :19; Start 04/19/17 at 09:00; Stop 04/23/17 at 18:46; Status DC Calcium Carbonate/ Glycine (Tums) 500 mg PRN DAILY PRN PO gi upset; Start at 19:00 Docusate Sodium (Colace) 100 mg PRN BID PRN PO constipation ; Start 04/18/17 at 19:00 Ibuprofen (Motrin) 400 mg PRN Q6HRS PRN PO PAIN; Start 04/18/17 at 19:00 Lorazepam (Ativan) 0.5 mg QHS PO Last administered on 04/21/17 19:47; Start 04/18/17 at 21:00; Stop 04/22/17 at 12:58; Status DC Quetiapine Fumarate (SEROquel) 25 mg BID@0900,1400 PO Last administered on 04/29 07:46; Start 04/19/17 at 09:00 Quetiapine Fumarate (SEROquel) 50 mg QHS PO Last administered on 04/29/17 19: 27; Start 04/18/17 at 21:00 Triamcinolone Acetonide (Aristocort) 1 shay PRN DAILY PRN TP RASH; Start at 19:00 Non-Formulary Medication 220 mg BID PO ; Start 04/18/17 at 21:00; Stop at 21:00; Status DC Pantoprazole Sodium (Protonix) 40 mg DAILYAC PO Last administered on 04/29/17 07:46; Start 04/19/17 at 07:30 Ibuprofen (Motrin) 800 mg PRN Q6HRS PRN PO PAIN; Start 04/18/17 at 19:15 Olanzapine (ZyPREXA ZYDIS) 5 mg 1X ONCE PO Last administered on 04/18/17 23: 50; Start 04/19/17 at 00:00; Stop 04/19/17 at 00:01; Status DC Olanzapine (ZyPREXA ZYDIS) 2.5 mg PRN Q2HR PRN PO ANXIETY / AGITATION Last administered on 04/28/17 22:23; Start 04/18/17 at 23:45 Vitamin D (Vitamin D3) 50,000 unit WEEKLY PO ; Start 04/19/17 at 18:00; Stop 04/19/17 at 18:00; Status DC Mirtazapine (Remeron) 15 mg QHS PO Last administered on 04/29/17 19:27; Start 04/19/17 at 21:00 Vitamin D (Vitamin D3) 50,000 unit WEEKLY PO Last administered on 04/26/17 10 :07; Start 04/19/17 at 21:00 Vitamin D (Vitamin D3) 50,000 unit WEEKLY PO ; Start 04/21/17 at 19:00; Status UNV Lorazepam (Ativan) 0.25 mg QHS PO Last administered on 11/28/17at 19:52; Start 04/22/17 at 21:00; Stop 04/24/17 at 21:01; Status DC Buspirone HCl (Buspar) 5 mg TID@0900,1400,1700 PO Last administered on 16:53; Start 04/24/17 at 09:00; Stop 04/25/17 at 18:38; Status DC Buspirone HCl (Buspar) 10 mg TID@0900,1400,1700 PO Last administered on 16:57; Start 04/26/17 at 09:00 Trazodone HCl (Desyrel) 50 mg QHS PO Last administered on 04/27/17 20:25; Start 04/25/17 at 21:00; Stop 04/28/17 at 18:39; Status DC Trazodone HCl (Desyrel) 50 mg PRN QHS PRN PO INSOMNIA Last administered on 04/28 00:59; Start 04/25/17 at 18:45; Stop 04/28/17 at 18:39; Status DC Aspirin (Aspirin Enteric Coated) 162 mg DAILYWBKFT PO Last administered on 04/29 07:46; Start 04/28/17 at 08:00 Trazodone HCl (Desyrel) 75 mg PRN QHS PRN PO INSOMNIA Last administered on 04/28 21:44; Start 04/28/17 at 18:45 Trazodone HCl (Desyrel) 75 mg QHS PO Last administered on 04/29/17 19:27; Start 04/28/17 at 21:00 Active Scripts Active Reported Tylenol (Acetaminophen) 325 Mg Tablet 650 Mg PO PRN Q4HRS PRN Triamcinolone Acetonide 15 Gm Cream..g. 1 Shay TP PRN DAILY PRN Ibuprofen 400 Mg Tablet 1-2 Tab PO Tums (Calcium Carbonate) 200 Mg Tab.chew 2 Tab PO PRN Q6-8HRS PRN Maalox Advanced Suspension (Mag Hydrox/Aluminum Hyd/Simeth) 355 Ml Oral.susp 30 Ml PO Colace (Docusate Sodium) 100 Mg Capsule 100 Mg PO PRN BID PRN Lorazepam 0.5 Mg Tablet 0.5 Mg PO QHS Buspirone Hcl 5 Mg Tablet 5 Mg PO BID@0900,1400 Seroquel (Quetiapine Fumarate) 25 Mg Tablet 25 Mg PO BID@0900,1400 Seroquel (Quetiapine Fumarate) 50 Mg Tablet 50 Mg PO QHS Multivitamins (Multivitamin) 1 Each Tablet 1 Each PO Omeprazole 20 Mg Capsule.dr 20 Mg PO DAILY08 Aleve (Naproxen Sodium) 220 Mg Tablet 220 Mg PO BID I have reviewed the current psychotropics carefully including drug interactions. Risk benefit ratio favors no change other than as noted in my dictated progress note. 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
--- NOTE | 2017-04-29 23:08 | PN ---
DATE: 04/27/2017 This is a late entry, covers the elements not covered in my initial note 04/27/2017. I met with the patient evening of 04/27/2017. Overall, the patient is doing better going to the bathroom and being cooperative. She was up at night once to the bathroom, at nursing staff during, and cares at times, but redirectable. REVIEW OF SYSTEMS: Ambulation impaired, in wheelchair. No CV, , pulmonary, eye system symptoms on review. Reliability poor. MENTAL STATUS EXAM: Oriented to herself. Insight, judgment, recent and remote memory, attention, concentration, fund of knowledge poor, consistent with her diagnosis mentioned as in my initial note. PLAN: Continue current psychotropics. Adjust further as clinically indicated. Psychotropics as mentioned in my initial note. MAN Abiodun THOMAS MD DR: ALTON/michael JOB#: [id number] / [id number]
--- NOTE | 2017-04-29 23:11 | PN ---
DATE: 04/28/2017 This is a late entry 04/28/2017 covers elements not covered in my initial note 04/28/2017. I met with the patient evening of 04/28/2017. She slept 3-1/2 hours previous evening. Short term memory is impaired, believes she is not in the hospital, gets a little irritable at times, but does have a good sense of humor. REVIEW OF SYSTEMS: Ambulation impaired. No CV, , pulmonary, eye, ENT system symptoms on review. Reliability poor. MENTAL STATUS EXAM: Oriented to herself. Insight, judgment, recent and remote memory, attention, concentration, fund of knowledge poor, consistent with her diagnosis mentioned in my initial note. PLAN: Increase trazodone to 75 mg p.o. at bedtime, may repeat x 1 for insomnia. Rest psychotropics to be continued as noted in my initial note. MAN Abiodun THOMAS MD DR: ALTON/michael JOB#: [id number] / [id number]
[2017-04-30 02:50] LABS: CLARITY,URINE CLEAR; COLOR,URINE AMBER; GLUCOSE,URINE NEG (NEG)
[2017-04-30 02:52] LABS: AMORPHOUS SEDIMENT,UR PRESENT /HPF; BACTERIA,URINE 0 /HPF (0-FEW); BILIRUBIN,URINE NEG (NEG); NITRITE,URINE NEG (NEG); RBC,URINE OCC /HPF (0-2); SQUAMOUS EPITHELIAL CELL,UR FEW /LPF; UROBILINOGEN,URINE 0.2 mg/dL (0.2 mg/dL)
[2017-04-30 05:53] VITALS: BP 117/63
[2017-04-30 06:49] LABS: BASO % 1 % (0-3); EOS # 0.3 x10^3/uL (0.0-0.7); EOS % 6 % (0-3); HEMATOCRIT 30.7 % (36.0-47.0); LYMPH # 1.3 x10^3/uL (1.0-4.8); LYMPH % 28 % (24-48); MEAN CORPUSCULAR HEMOGLOBIN 30 pg (25-35); MEAN CORPUSCULAR HGB CONC 34 g/dL (31-37); MEAN CORPUSCULAR VOLUME 87 fL (79-100); MONO # 0.5 x10^3/uL (0.0-1.1); MONO % 10 % (0-9); NEUT # 2.6 x10^3uL (1.8-7.7); NEUT % 55 % (31-73); PLATELET COUNT 249 x10^3/uL (140-400); RED BLOOD COUNT 3.54 x10^6/uL (3.50-5.40); RED CELL DISTRIBUTION WIDTH 13.3 % (11.5-14.5); WHITE BLOOD COUNT 4.7 x10^3/uL (4.0-11.0)
[2017-04-30 06:53] LABS: HEMOGLOBIN 10.5 g/dL (12.0-15.5)
[2017-04-30 07:07] LABS: ALBUMIN 2.5 g/dL (3.4-5.0); ALBUMIN/GLOBULIN RATIO 0.7 (1.0-1.7); CALCIUM 9.1 mg/dL (8.5-10.1); GFR 52.3; TOTAL BILIRUBIN 0.2 mg/dL (0.2-1.0)
[2017-04-30] MEDS: PANTOPRAZOLE 40 MG TABLET. PO SCH (08:34)
[2017-04-30] MEDS: busPIRone 10 MG TABLET. PO SCH ×3 (08:34→17:27)
[2017-04-30] MEDS: QUEtiapine 25 MG TABLET. PO SCH ×2 (08:34→14:16)
[2017-04-30] MEDS: ASPIRIN ENTERIC COATED 81 MG TABLET.DR. PO SCH (08:34)
[2017-04-30 15:59] VITALS: BP 125/66
[2017-04-30] MEDS: QUEtiapine 50 MG TABLET. PO SCH (19:13)
[2017-04-30] MEDS: traZODone 50 MG TABLET. PO SCH (19:13)
[2017-04-30] MEDS: MIRTAZAPINE 15 MG TABLET PO SCH (19:13)
--- NOTE | 2017-04-30 19:59 | PDOC ---
Exam Note: Reginaldo Note: Please also refer to the separate dictated note~for this date of service dictated separately.~Patient seen individually. Discussed the patient with Nursing staff reviewed the chart.~Reviewed interim history and current functioning. Reviewed vital signs,~Labs/ Radiology~and current medications noted below. Continue current treatment with the changes noted in the dictated addendum note Assessment: Vital Signs: Vital Signs Date Time Temp Pulse Resp B/P (MAP) Pulse Ox O2 Delivery O2 Flow Rate FiO2 04/30/17 15:59 97.8 72 18 125/66 (85) 99 04/29/17 16:12 0.0 04/26/17 15:54 Room Air I&O Intake and Output 04/30/17 07:00 Intake Total 840 ml Balance 840 ml Intake Oral 840 ml Labs: Laboratory Tests Test 04/30/17 02:30 04/30/17 06:25 Urine Collection Type Unknown Urine Color Marjorie Urine Clarity Clear Urine pH 5.0 Urine Specific [place] 1.025 Urine Protein 30 mg/dl (NEG-TRACE) Urine Glucose (UA) Neg mg/dL (NEG) Urine Ketones (Stick) Neg mg/dL (NEG) Urine Blood Neg (NEG) Urine Nitrite Neg (NEG) Urine Bilirubin Neg (NEG) Urine Urobilinogen Dipstick 0.2 mg/dL (0.2 mg/dL) Urine Leukocyte Esterase Neg (NEG) Urine RBC Occ /HPF (0-2) Urine WBC 5-10 /HPF (0-4) Urine Squamous Epithelial Cells Few /LPF Urine Amorphous Sediment Present /HPF Urine Bacteria 0 /HPF (0-FEW) Urine Mucus Slight /LPF White Blood Count 4.7 x10^3/uL (4.0-11.0) Red Blood Count 3.54 x10^6/uL (3.50-5.40) Hemoglobin 10.5 g/dL (12.0-15.5) L Hematocrit 30.7 % (36.0-47.0) L Mean Corpuscular Volume 87 fL (79-100) Mean Corpuscular Hemoglobin 30 pg (25-35) Mean Corpuscular Hemoglobin Concent 34 g/dL (31-37) Red Cell Distribution Width 13.3 % (11.5-14.5) Platelet Count 249 x10^3/uL (140-400) Neutrophils (%) (Auto) 55 % (31-73) Lymphocytes (%) (Auto) 28 % (24-48) Monocytes (%) (Auto) 10 % (0-9) H Eosinophils (%) (Auto) 6 % (0-3) H Basophils (%) (Auto) 1 % (0-3) Neutrophils # (Auto) 2.6 x10^3uL (1.8-7.7) Lymphocytes # (Auto) 1.3 x10^3/uL (1.0-4.8) Monocytes # (Auto) 0.5 x10^3/uL (0.0-1.1) Eosinophils # (Auto) 0.3 x10^3/uL (0.0-0.7) Basophils # (Auto) 0.0 x10^3/uL (0.0-0.2) Sodium Level 144 mmol/L (136-145) Potassium Level 4.0 mmol/L (3.5-5.1) Chloride Level 108 mmol/L (98-107) H Carbon Dioxide Level 29 mmol/L (21-32) Anion Gap 7 (6-14) Blood Urea Nitrogen 18 mg/dL (7-20) Creatinine 1.0 mg/dL (0.6-1.0) Estimated GFR (Cockcroft-Gault) 52.3 BUN/Creatinine Ratio 18 (6-20) Glucose Level 98 mg/dL (70-99) Calcium Level 9.1 mg/dL (8.5-10.1) Total Bilirubin 0.2 mg/dL (0.2-1.0) Aspartate Amino Transferase (AST) 24 U/L (15-37) Alanine Aminotransferase (ALT) 25 U/L (14-59) Alkaline Phosphatase 68 U/L (46-116) Total Protein 6.0 g/dL (6.4-8.2) L Albumin 2.5 g/dL (3.4-5.0) L Albumin/Globulin Ratio 0.7 (1.0-1.7) L Current Medications: Meds: Current Medications Acetaminophen (Tylenol) 650 mg PRN Q6HRS PRN PO PAIN / TEMP; Start 04/18/17 at 18:15; Stop 04/18/17 at 18:57; Status DC Multi-Ingredient Ointment (Analgesic [place]) 1 shay PRN QID PRN TP MUSCLE PAIN; Start 04/18/17 at 18:15 Al Hydroxide/Mg Hydroxide (Mylanta Plus Xs) 15 ml PRN AFTMEALHC PRN PO DYSPEPSIA; Start 04/18/17 at 18:15 Magnesium Hydroxide (Milk Of Magnesia) 2,400 mg PRN QHS PRN PO CONSTIPATION; Start 04/18/17 at 18:15 Acetaminophen (Tylenol) 650 mg PRN Q4HRS PRN PO PAIN; Start 04/18/17 at 19:00 Buspirone HCl (Buspar) 5 mg BID@0900,1400 PO Last administered on 04/23/17 14 :19; Start 04/19/17 at 09:00; Stop 04/23/17 at 18:46; Status DC Calcium Carbonate/ Glycine (Tums) 500 mg PRN DAILY PRN PO gi upset; Start at 19:00 Docusate Sodium (Colace) 100 mg PRN BID PRN PO constipation ; Start 04/18/17 at 19:00 Ibuprofen (Motrin) 400 mg PRN Q6HRS PRN PO PAIN; Start 04/18/17 at 19:00 Lorazepam (Ativan) 0.5 mg QHS PO Last administered on 04/21/17 19:47; Start 04/18/17 at 21:00; Stop 04/22/17 at 12:58; Status DC Quetiapine Fumarate (SEROquel) 25 mg BID@0900,1400 PO Last administered on 04/30 14:16; Start 04/19/17 at 09:00 Quetiapine Fumarate (SEROquel) 50 mg QHS PO Last administered on 04/30/17 19: 13; Start 04/18/17 at 21:00 Triamcinolone Acetonide (Aristocort) 1 shay PRN DAILY PRN TP RASH; Start at 19:00 Non-Formulary Medication 220 mg BID PO ; Start 04/18/17 at 21:00; Stop at 21:00; Status DC Pantoprazole Sodium (Protonix) 40 mg DAILYAC PO Last administered on 04/30/17 08:34; Start 04/19/17 at 07:30 Ibuprofen (Motrin) 800 mg PRN Q6HRS PRN PO PAIN Last administered on 04/29/17 21:33; Start 04/18/17 at 19:15 Olanzapine (ZyPREXA ZYDIS) 5 mg 1X ONCE PO Last administered on 04/18/17 23: 50; Start 04/19/17 at 00:00; Stop 04/19/17 at 00:01; Status DC Olanzapine (ZyPREXA ZYDIS) 2.5 mg PRN Q2HR PRN PO ANXIETY / AGITATION Last administered on 04/28/17 22:23; Start 04/18/17 at 23:45 Vitamin D (Vitamin D3) 50,000 unit WEEKLY PO ; Start 04/19/17 at 18:00; Stop 04/19/17 at 18:00; Status DC Mirtazapine (Remeron) 15 mg QHS PO Last administered on 04/30/17 19:13; Start 04/19/17 at 21:00 Vitamin D (Vitamin D3) 50,000 unit WEEKLY PO Last administered on 04/26/17 10 :07; Start 04/19/17 at 21:00 Vitamin D (Vitamin D3) 50,000 unit WEEKLY PO ; Start 04/21/17 at 19:00; Status UNV Lorazepam (Ativan) 0.25 mg QHS PO Last administered on 04/24/17 19:52; Start 04/22/17 at 21:00; Stop 04/24/17 at 21:01; Status DC Buspirone HCl (Buspar) 5 mg TID@0900,1400,1700 PO Last administered on 16:53; Start 04/24/17 at 09:00; Stop 04/25/17 at 18:38; Status DC Buspirone HCl (Buspar) 10 mg TID@0900,1400,1700 PO Last administered on 17:27; Start 04/26/17 at 09:00 Trazodone HCl (Desyrel) 50 mg QHS PO Last administered on 04/27/17 20:25; Start 04/25/17 at 21:00; Stop 04/28/17 at 18:39; Status DC Trazodone HCl (Desyrel) 50 mg PRN QHS PRN PO INSOMNIA Last administered on 04/28 00:59; Start 04/25/17 at 18:45; Stop 04/28/17 at 18:39; Status DC Aspirin (Aspirin Enteric Coated) 162 mg DAILYWBKFT PO Last administered on 04/30 08:34; Start 04/28/17 at 08:00 Trazodone HCl (Desyrel) 75 mg PRN QHS PRN PO INSOMNIA Last administered on 04/28 21:44; Start 04/28/17 at 18:45 Trazodone HCl (Desyrel) 75 mg QHS PO Last administered on 04/30/17 19:13; Start 04/28/17 at 21:00 Active Scripts Active Reported Tylenol (Acetaminophen) 325 Mg Tablet 650 Mg PO PRN Q4HRS PRN Triamcinolone Acetonide 15 Gm Cream..g. 1 Shay TP PRN DAILY PRN Ibuprofen 400 Mg Tablet 1-2 Tab PO Tums (Calcium Carbonate) 200 Mg Tab.chew 2 Tab PO PRN Q6-8HRS PRN Maalox Advanced Suspension (Mag Hydrox/Aluminum Hyd/Simeth) 355 Ml Oral.susp 30 Ml PO Colace (Docusate Sodium) 100 Mg Capsule 100 Mg PO PRN BID PRN Lorazepam 0.5 Mg Tablet 0.5 Mg PO QHS Buspirone Hcl 5 Mg Tablet 5 Mg PO BID@0900,1400 Seroquel (Quetiapine Fumarate) 25 Mg Tablet 25 Mg PO BID@0900,1400 Seroquel (Quetiapine Fumarate) 50 Mg Tablet 50 Mg PO QHS Multivitamins (Multivitamin) 1 Each Tablet 1 Each PO Omeprazole 20 Mg Capsule.dr 20 Mg PO DAILY08 Aleve (Naproxen Sodium) 220 Mg Tablet 220 Mg PO BID I have reviewed the current psychotropics carefully including drug interactions. Risk benefit ratio favors no change other than as noted in my dictated progress note. 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
[2017-04-30] MEDS: traZODone 50 MG TABLET. PO PRN (22:00)
[2017-05-01 06:23] VITALS: BP 168/82
--- NOTE | 2017-05-01 06:54 | PN ---
DATE: 04/29/2017 PSYCHIATRIC PROGRESS NOTE This is a late entry 04/29/2017 covers elements not covered in my initial note 04/29/2017. Met with the patient in the evening of 04/29/2017. The patient slept 6-1/2 hours previous evening. Has been more irritable, refusing cares, demanding, in the evening irritable when the son visited. This is a change for her. We will check a UA, CBC, CMP to make sure there is nothing metabolic or with respect to her UTI increasing her agitation. REVIEW OF SYSTEMS: Ambulation impaired, in wheelchair. No CV, , pulmonary, eye, ENT system symptoms on review. Reliability poor. MENTAL STATUS EXAM: Oriented to herself. Insight, judgment, recent and remote memory, attention, concentration, fund of knowledge poor, consistent with her diagnosis mentioned in my initial note. PLAN: Continue current psychotropics as mentioned in my initial note. Adjust as indicated clinically. MATTI THOMAS MD DR: ALTON/michael JOB#: [id number] / [id number]
[2017-05-01] MEDS: busPIRone 10 MG TABLET. PO SCH ×3 (09:03→17:55)
[2017-05-01] MEDS: QUEtiapine 25 MG TABLET. PO SCH ×2 (09:03→13:09)
[2017-05-01] MEDS: ASPIRIN ENTERIC COATED 81 MG TABLET.DR. PO SCH (09:03)
[2017-05-01] MEDS: PANTOPRAZOLE 40 MG TABLET. PO SCH (09:03)
[2017-05-01 15:10] VITALS: BP 145/93
--- NOTE | 2017-05-01 19:59 | PDOC ---
Exam Note: Reginaldo Note: Please also refer to the separate dictated note~for this date of service dictated separately.~Patient seen individually. Discussed the patient with Nursing staff reviewed the chart.~Reviewed interim history and current functioning. Reviewed vital signs,~Labs/ Radiology~and current medications noted below. Continue current treatment with the changes noted in the dictated addendum note Assessment: Vital Signs: Vital Signs Date Time Temp Pulse Resp B/P (MAP) Pulse Ox O2 Delivery O2 Flow Rate FiO2 05/01/17 15:10 97.5 78 22 145/93 (110) 98 04/29/17 16:12 0.0 04/26/17 15:54 Room Air I&O Intake and Output 05/01/17 07:00 Intake Total 1680 ml Balance 1680 ml Intake Oral 1680 ml # Bowel Movements 1 Current Medications: Meds: Current Medications Acetaminophen (Tylenol) 650 mg PRN Q6HRS PRN PO PAIN / TEMP; Start 04/18/17 at 18:15; Stop 04/18/17 at 18:57; Status DC Multi-Ingredient Ointment (Analgesic [place]) 1 shay PRN QID PRN TP MUSCLE PAIN; Start 04/18/17 at 18:15 Al Hydroxide/Mg Hydroxide (Mylanta Plus Xs) 15 ml PRN AFTMEALHC PRN PO DYSPEPSIA; Start 04/18/17 at 18:15 Magnesium Hydroxide (Milk Of Magnesia) 2,400 mg PRN QHS PRN PO CONSTIPATION; Start 04/18/17 at 18:15 Acetaminophen (Tylenol) 650 mg PRN Q4HRS PRN PO PAIN; Start 04/18/17 at 19:00 Buspirone HCl (Buspar) 5 mg BID@0900,1400 PO Last administered on 04/23/17t 14 :19; Start 04/19/17 at 09:00; Stop 04/23/17 at 18:46; Status DC Calcium Carbonate/ Glycine (Tums) 500 mg PRN DAILY PRN PO gi upset; Start at 19:00 Docusate Sodium (Colace) 100 mg PRN BID PRN PO constipation ; Start 04/18/17 at 19:00 Ibuprofen (Motrin) 400 mg PRN Q6HRS PRN PO PAIN; Start 04/18/17 at 19:00 Lorazepam (Ativan) 0.5 mg QHS PO Last administered on 04/21/17 19:47; Start 04/18/17 at 21:00; Stop 04/22/17 at 12:58; Status DC Quetiapine Fumarate (SEROquel) 25 mg BID@0900,1400 PO Last administered on 05/01 13:09; Start 04/19/17 at 09:00 Quetiapine Fumarate (SEROquel) 50 mg QHS PO Last administered on 04/30/17 19: 13; Start 04/18/17 at 21:00; Stop 05/01/17 at 18:49; Status DC Triamcinolone Acetonide (Aristocort) 1 shay PRN DAILY PRN TP RASH; Start at 19:00 Non-Formulary Medication 220 mg BID PO ; Start 04/18/17 at 21:00; Stop at 21:00; Status DC Pantoprazole Sodium (Protonix) 40 mg DAILYAC PO Last administered on 05/01/17 09:03; Start 04/19/17 at 07:30 Ibuprofen (Motrin) 800 mg PRN Q6HRS PRN PO PAIN Last administered on 04/29/17 21:33; Start 04/18/17 at 19:15 Olanzapine (ZyPREXA ZYDIS) 5 mg 1X ONCE PO Last administered on 04/18/17 23: 50; Start 04/19/17 at 00:00; Stop 04/19/17 at 00:01; Status DC Olanzapine (ZyPREXA ZYDIS) 2.5 mg PRN Q2HR PRN PO ANXIETY / AGITATION Last administered on 04/28/17 22:23; Start 04/18/17 at 23:45 Vitamin D (Vitamin D3) 50,000 unit WEEKLY PO ; Start 04/19/17 at 18:00; Stop 04/19/17 at 18:00; Status DC Mirtazapine (Remeron) 15 mg QHS PO Last administered on 04/30/17 19:13; Start 04/19/17 at 21:00 Vitamin D (Vitamin D3) 50,000 unit WEEKLY PO Last administered on 04/26/17 10 :07; Start 04/19/17 at 21:00 Vitamin D (Vitamin D3) 50,000 unit WEEKLY PO ; Start 04/21/17 at 19:00; Status UNV Lorazepam (Ativan) 0.25 mg QHS PO Last administered on 04/24/17 19:52; Start 04/22/17 at 21:00; Stop 04/24/17 at 21:01; Status DC Buspirone HCl (Buspar) 5 mg TID@0900,1400,1700 PO Last administered on 16:53; Start 04/24/17 at 09:00; Stop 04/25/17 at 18:38; Status DC Buspirone HCl (Buspar) 10 mg TID@0900,1400,1700 PO Last administered on 17:55; Start 04/26/17 at 09:00 Trazodone HCl (Desyrel) 50 mg QHS PO Last administered on 04/27/17 20:25; Start 04/25/17 at 21:00; Stop 04/28/17 at 18:39; Status DC Trazodone HCl (Desyrel) 50 mg PRN QHS PRN PO INSOMNIA Last administered on 04/28 00:59; Start 04/25/17 at 18:45; Stop 04/28/17 at 18:39; Status DC Aspirin (Aspirin Enteric Coated) 162 mg DAILYWBKFT PO Last administered on 05/01 09:03; Start 04/28/17 at 08:00 Trazodone HCl (Desyrel) 75 mg PRN QHS PRN PO INSOMNIA Last administered on 04/30 22:00; Start 04/28/17 at 18:45 Trazodone HCl (Desyrel) 75 mg QHS PO Last administered on 04/30/17 19:13; Start 04/28/17 at 21:00 Quetiapine Fumarate (SEROquel) 62.5 mg QHS PO ; Start 05/01/17 at 21:00 Active Scripts Active Reported Tylenol (Acetaminophen) 325 Mg Tablet 650 Mg PO PRN Q4HRS PRN Triamcinolone Acetonide 15 Gm Cream..g. 1 Shay TP PRN DAILY PRN Ibuprofen 400 Mg Tablet 1-2 Tab PO Tums (Calcium Carbonate) 200 Mg Tab.chew 2 Tab PO PRN Q6-8HRS PRN Maalox Advanced Suspension (Mag Hydrox/Aluminum Hyd/Simeth) 355 Ml Oral.susp 30 Ml PO Colace (Docusate Sodium) 100 Mg Capsule 100 Mg PO PRN BID PRN Lorazepam 0.5 Mg Tablet 0.5 Mg PO QHS Buspirone Hcl 5 Mg Tablet 5 Mg PO BID@0900,1400 Seroquel (Quetiapine Fumarate) 25 Mg Tablet 25 Mg PO BID@0900,1400 Seroquel (Quetiapine Fumarate) 50 Mg Tablet 50 Mg PO QHS Multivitamins (Multivitamin) 1 Each Tablet 1 Each PO Omeprazole 20 Mg Capsule.dr 20 Mg PO DAILY08 Aleve (Naproxen Sodium) 220 Mg Tablet 220 Mg PO BID I have reviewed the current psychotropics carefully including drug interactions. Risk benefit ratio favors no change other than as noted in my dictated progress note. 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
[2017-05-01] MEDS: MIRTAZAPINE 15 MG TABLET PO SCH (20:54)
[2017-05-01] MEDS: traZODone 50 MG TABLET. PO SCH (20:55)
[2017-05-01] MEDS ORDERED: QUEtiapine 50 MG TABLET. PO SCH (21:00)
[2017-05-02 06:23] VITALS: BP 140/68
[2017-05-02] MEDS: PANTOPRAZOLE 40 MG TABLET. PO SCH (07:52)
[2017-05-02] MEDS: busPIRone 10 MG TABLET. PO SCH ×3 (07:52→17:14)
[2017-05-02] MEDS: ASPIRIN ENTERIC COATED 81 MG TABLET.DR. PO SCH (07:52)
[2017-05-02] MEDS: QUEtiapine 25 MG TABLET. PO SCH ×2 (07:52→14:04)
--- NOTE | 2017-05-02 12:02 | PN ---
DATE: 04/30/2017 PSYCHIATRIC PROGRESS NOTE This is a late entry 04/30/2017, covers elements not covered in my initial note 04/30/2017. SUBJECTIVE: I met with the patient the evening of 04/30/2017. The patient slept 7-1/4 hours previous evening, pleasant, compliant with medications, interactive, enjoyed her visit with her daughter at lunchtime. UA has reflux to culture. REVIEW OF SYSTEMS: Ambulation impaired, in wheelchair. No CV, , pulmonary, eye system symptoms on review. MENTAL STATUS EXAM: Oriented to herself. Insight, judgment, recent and remote memory, attention, concentration, fund of knowledge poor, consistent with her diagnoses mentioned in my initial note. PLAN: Continue current psychotropics. She has been a little more irritable, but this perhaps can be explained by her urinary tract infection. Will defer to Dr. Kiser, continue rest unchanged. MAN Abiodun THOMAS MD DR: ALTON/michael JOB#: [id number] / [id number]
[2017-05-02 16:28] VITALS: BP 128/89
[2017-05-02] MEDS: MIRTAZAPINE 15 MG TABLET PO SCH (20:03)
[2017-05-02] MEDS: QUEtiapine 50 MG TABLET. PO SCH (20:04)
[2017-05-02] MEDS: traZODone 50 MG TABLET. PO SCH (20:04)
--- NOTE | 2017-05-02 21:10 | PDOC ---
Exam Note: Reginaldo Note: Please also refer to the separate dictated note~for this date of service dictated separately.~Patient seen individually. Discussed the patient with Nursing staff reviewed the chart.~Reviewed interim history and current functioning. Reviewed vital signs,~Labs/ Radiology~and current medications noted below. Continue current treatment with the changes noted in the dictated addendum note Assessment: Vital Signs: Vital Signs Date Time Temp Pulse Resp B/P (MAP) Pulse Ox O2 Delivery O2 Flow Rate FiO2 05/02/17 16:28 97.5 84 20 128/89 (102) 98 Room Air 04/29/17 16:12 0.0 I&O Intake and Output 05/02/17 07:00 Intake Total 960 ml Balance 960 ml Intake Oral 960 ml Current Medications: Meds: Current Medications Acetaminophen (Tylenol) 650 mg PRN Q6HRS PRN PO PAIN / TEMP; Start 04/18/17 at 18:15; Stop 04/18/17 at 18:57; Status DC Multi-Ingredient Ointment (Analgesic [place]) 1 shay PRN QID PRN TP MUSCLE PAIN; Start 04/18/17 at 18:15 Al Hydroxide/Mg Hydroxide (Mylanta Plus Xs) 15 ml PRN AFTMEALHC PRN PO DYSPEPSIA; Start 04/18/17 at 18:15 Magnesium Hydroxide (Milk Of Magnesia) 2,400 mg PRN QHS PRN PO CONSTIPATION; Start 04/18/17 at 18:15 Acetaminophen (Tylenol) 650 mg PRN Q4HRS PRN PO PAIN; Start 04/18/17 at 19:00 Buspirone HCl (Buspar) 5 mg BID@0900,1400 PO Last administered on 04/23/17t 14 :19; Start 04/19/17 at 09:00; Stop 04/23/17 at 18:46; Status DC Calcium Carbonate/ Glycine (Tums) 500 mg PRN DAILY PRN PO gi upset; Start at 19:00 Docusate Sodium (Colace) 100 mg PRN BID PRN PO constipation ; Start 04/18/17 at 19:00 Ibuprofen (Motrin) 400 mg PRN Q6HRS PRN PO PAIN; Start 04/18/17 at 19:00 Lorazepam (Ativan) 0.5 mg QHS PO Last administered on 04/21/17 19:47; Start 04/18/17 at 21:00; Stop 04/22/17 at 12:58; Status DC Quetiapine Fumarate (SEROquel) 25 mg BID@0900,1400 PO Last administered on 05/02 14:04; Start 04/19/17 at 09:00 Quetiapine Fumarate (SEROquel) 50 mg QHS PO Last administered on 04/30/17 19: 13; Start 04/18/17 at 21:00; Stop 05/01/17 at 18:49; Status DC Triamcinolone Acetonide (Aristocort) 1 shay PRN DAILY PRN TP RASH; Start at 19:00 Non-Formulary Medication 220 mg BID PO ; Start 04/18/17 at 21:00; Stop at 21:00; Status DC Pantoprazole Sodium (Protonix) 40 mg DAILYAC PO Last administered on 05/02/17 07:52; Start 04/19/17 at 07:30 Ibuprofen (Motrin) 800 mg PRN Q6HRS PRN PO PAIN Last administered on 04/29/17 21:33; Start 04/18/17 at 19:15 Olanzapine (ZyPREXA ZYDIS) 5 mg 1X ONCE PO Last administered on 04/18/17 23: 50; Start 04/19/17 at 00:00; Stop 04/19/17 at 00:01; Status DC Olanzapine (ZyPREXA ZYDIS) 2.5 mg PRN Q2HR PRN PO ANXIETY / AGITATION Last administered on 04/28/17 22:23; Start 04/18/17 at 23:45 Vitamin D (Vitamin D3) 50,000 unit WEEKLY PO ; Start 04/19/17 at 18:00; Stop 04/19/17 at 18:00; Status DC Mirtazapine (Remeron) 15 mg QHS PO Last administered on 05/02/17 20:03; Start 04/19/17 at 21:00 Vitamin D (Vitamin D3) 50,000 unit WEEKLY PO Last administered on 04/26/17 10 :07; Start 04/19/17 at 21:00 Vitamin D (Vitamin D3) 50,000 unit WEEKLY PO ; Start 04/21/17 at 19:00; Status UNV Lorazepam (Ativan) 0.25 mg QHS PO Last administered on 04/24/17 19:52; Start 04/22/17 at 21:00; Stop 04/24/17 at 21:01; Status DC Buspirone HCl (Buspar) 5 mg TID@0900,1400,1700 PO Last administered on 16:53; Start 04/24/17 at 09:00; Stop 04/25/17 at 18:38; Status DC Buspirone HCl (Buspar) 10 mg TID@0900,1400,1700 PO Last administered on 17:14; Start 04/26/17 at 09:00 Trazodone HCl (Desyrel) 50 mg QHS PO Last administered on 04/27/17 20:25; Start 04/25/17 at 21:00; Stop 04/28/17 at 18:39; Status DC Trazodone HCl (Desyrel) 50 mg PRN QHS PRN PO INSOMNIA Last administered on 04/28 00:59; Start 04/25/17 at 18:45; Stop 04/28/17 at 18:39; Status DC Aspirin (Aspirin Enteric Coated) 162 mg DAILYWBKFT PO Last administered on 05/02 07:52; Start 04/28/17 at 08:00 Trazodone HCl (Desyrel) 75 mg PRN QHS PRN PO INSOMNIA Last administered on 04/30 22:00; Start 04/28/17 at 18:45 Trazodone HCl (Desyrel) 75 mg QHS PO Last administered on 05/02/17 20:04; Start 04/28/17 at 21:00 Quetiapine Fumarate (SEROquel) 62.5 mg QHS PO Last administered on 05/01/17 20 :55; Start 05/01/17 at 21:00; Stop 05/02/17 at 18:26; Status DC Quetiapine Fumarate (SEROquel) 75 mg QHS PO Last administered on 05/02/17 20: 04; Start 05/02/17 at 21:00 Active Scripts Active Reported Tylenol (Acetaminophen) 325 Mg Tablet 650 Mg PO PRN Q4HRS PRN Triamcinolone Acetonide 15 Gm Cream..g. 1 Shay TP PRN DAILY PRN Ibuprofen 400 Mg Tablet 1-2 Tab PO Tums (Calcium Carbonate) 200 Mg Tab.chew 2 Tab PO PRN Q6-8HRS PRN Maalox Advanced Suspension (Mag Hydrox/Aluminum Hyd/Simeth) 355 Ml Oral.susp 30 Ml PO Colace (Docusate Sodium) 100 Mg Capsule 100 Mg PO PRN BID PRN Lorazepam 0.5 Mg Tablet 0.5 Mg PO QHS Buspirone Hcl 5 Mg Tablet 5 Mg PO BID@0900,1400 Seroquel (Quetiapine Fumarate) 25 Mg Tablet 25 Mg PO BID@0900,1400 Seroquel (Quetiapine Fumarate) 50 Mg Tablet 50 Mg PO QHS Multivitamins (Multivitamin) 1 Each Tablet 1 Each PO Omeprazole 20 Mg Capsule.dr 20 Mg PO DAILY08 Aleve (Naproxen Sodium) 220 Mg Tablet 220 Mg PO BID I have reviewed the current psychotropics carefully including drug interactions. Risk benefit ratio favors no change other than as noted in my dictated progress note. 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
[2017-05-03] MEDS: traZODone 50 MG TABLET. PO PRN ×2 (00:41→19:47)
[2017-05-03 05:50] VITALS: BP 160/79
--- NOTE | 2017-05-03 07:14 | PN ---
DATE: 05/01/2017 PSYCHIATRIC PROGRESS NOTE This is a late entry 05/01/2017, covers elements not covered in my initial note 05/01/2017. Met with the patient evening of 05/01/2017. Overall, the patient remains confused, pleasant, cooperative, takes her medications. Took a nap in the afternoon and when she woke up, she was irritable, labile, somewhat paranoid. Slept 6 hours previous evening with trazodone and Zyprexa. REVIEW OF SYSTEMS: Ambulation impaired, in wheelchair. No CV, , pulmonary, eye, ENT system symptoms on review. Reliability poor. MENTAL STATUS EXAM: Oriented to herself. Insight, judgment, recent and remote memory, attention, concentration, fund of knowledge poor, consistent with her diagnosis. UA shows mixed sangita. IMPRESSION: Unchanged from initial note. PLAN: Increase bedtime Seroquel from 50 mg to 62.5 mg. Maintain Seroquel 25 mg b.i.d., BuSpar 10 mg 3 times a day; Zyprexa p.r.n.; Remeron 15 mg at bedtime; trazodone 75 mg at bedtime, may repeat x 1. Adjust further as clinically indicated. MATTI THOMAS MD DR: ALTON/michael JOB#: [id number] / [id number]
[2017-05-03] MEDS: busPIRone 10 MG TABLET. PO SCH ×3 (08:08→17:46)
[2017-05-03] MEDS: ASPIRIN ENTERIC COATED 81 MG TABLET.DR. PO SCH (08:08)
[2017-05-03] MEDS: QUEtiapine 25 MG TABLET. PO SCH ×2 (08:08→14:36)
[2017-05-03] MEDS: PANTOPRAZOLE 40 MG TABLET. PO SCH (08:08)
[2017-05-03] MEDS: CHOLECALCIFEROL (VITAMIN D3) 50,000 UNIT CAPSULE PO SCH (08:09)
[2017-05-03 16:33] VITALS: BP 148/76
[2017-05-03] MEDS: MAGNESIUM HYDROXIDE 2,400 MG/30 ML ORAL.SUSP. PO PRN (17:46)
[2017-05-03] MEDS: QUEtiapine 50 MG TABLET. PO SCH (19:35)
[2017-05-03] MEDS: traZODone 50 MG TABLET. PO SCH (19:35)
[2017-05-03] MEDS: MIRTAZAPINE 15 MG TABLET PO SCH (19:35)
--- NOTE | 2017-05-03 19:55 | PDOC ---
Exam Note: Reginaldo Note: Please also refer to the separate dictated note~for this date of service dictated separately.~Patient seen individually. Discussed the patient with Nursing staff reviewed the chart.~Reviewed interim history and current functioning. Reviewed vital signs,~Labs/ Radiology~and current medications noted below. Continue current treatment with the changes noted in the dictated addendum note Assessment: Vital Signs: Vital Signs Date Time Temp Pulse Resp B/P (MAP) Pulse Ox O2 Delivery O2 Flow Rate FiO2 05/03/17 16:33 97.0 93 16 148/76 (100) 96 05/03/17 05:50 Room Air 04/29/17 16:12 0.0 I&O Intake and Output 05/03/17 07:00 Intake Total 1500 ml Balance 1500 ml Intake Oral 1500 ml Current Medications: Meds: Current Medications Acetaminophen (Tylenol) 650 mg PRN Q6HRS PRN PO PAIN / TEMP; Start 04/18/17 at 18:15; Stop 04/18/17 at 18:57; Status DC Multi-Ingredient Ointment (Analgesic [place]) 1 shay PRN QID PRN TP MUSCLE PAIN; Start 04/18/17 at 18:15 Al Hydroxide/Mg Hydroxide (Mylanta Plus Xs) 15 ml PRN AFTMEALHC PRN PO DYSPEPSIA; Start 04/18/17 at 18:15 Magnesium Hydroxide (Milk Of Magnesia) 2,400 mg PRN QHS PRN PO CONSTIPATION Last administered on 05/03/17t 17:46; Start 04/18/17 at 18:15 Acetaminophen (Tylenol) 650 mg PRN Q4HRS PRN PO PAIN; Start 04/18/17 at 19:00 Buspirone HCl (Buspar) 5 mg BID@0900,1400 PO Last administered on 04/23/17 14 :19; Start 04/19/17 at 09:00; Stop 04/23/17 at 18:46; Status DC Calcium Carbonate/ Glycine (Tums) 500 mg PRN DAILY PRN PO gi upset; Start at 19:00 Docusate Sodium (Colace) 100 mg PRN BID PRN PO constipation ; Start 04/18/17 at 19:00 Ibuprofen (Motrin) 400 mg PRN Q6HRS PRN PO PAIN; Start 04/18/17 at 19:00 Lorazepam (Ativan) 0.5 mg QHS PO Last administered on 04/21/17 19:47; Start 04/18/17 at 21:00; Stop 04/22/17 at 12:58; Status DC Quetiapine Fumarate (SEROquel) 25 mg BID@0900,1400 PO Last administered on 05/03 14:36; Start 04/19/17 at 09:00 Quetiapine Fumarate (SEROquel) 50 mg QHS PO Last administered on 04/30/17 19: 13; Start 04/18/17 at 21:00; Stop 05/01/17 at 18:49; Status DC Triamcinolone Acetonide (Aristocort) 1 shay PRN DAILY PRN TP RASH; Start at 19:00 Non-Formulary Medication 220 mg BID PO ; Start 04/18/17 at 21:00; Stop at 21:00; Status DC Pantoprazole Sodium (Protonix) 40 mg DAILYAC PO Last administered on 05/03/17 08:08; Start 04/19/17 at 07:30 Ibuprofen (Motrin) 800 mg PRN Q6HRS PRN PO PAIN Last administered on 04/29/17 21:33; Start 04/18/17 at 19:15 Olanzapine (ZyPREXA ZYDIS) 5 mg 1X ONCE PO Last administered on 04/18/17 23: 50; Start 04/19/17 at 00:00; Stop 04/19/17 at 00:01; Status DC Olanzapine (ZyPREXA ZYDIS) 2.5 mg PRN Q2HR PRN PO ANXIETY / AGITATION Last administered on 04/28/17 22:23; Start 04/18/17 at 23:45 Vitamin D (Vitamin D3) 50,000 unit WEEKLY PO ; Start 04/19/17 at 18:00; Stop 04/19/17 at 18:00; Status DC Mirtazapine (Remeron) 15 mg QHS PO Last administered on 05/03/17 19:35; Start 04/19/17 at 21:00 Vitamin D (Vitamin D3) 50,000 unit WEEKLY PO Last administered on 05/03/17 08: 09; Start 04/19/17 at 21:00 Vitamin D (Vitamin D3) 50,000 unit WEEKLY PO ; Start 04/21/17 at 19:00; Status UNV Lorazepam (Ativan) 0.25 mg QHS PO Last administered on 04/24/17 19:52; Start 04/22/17 at 21:00; Stop 04/24/17 at 21:01; Status DC Buspirone HCl (Buspar) 5 mg TID@0900,1400,1700 PO Last administered on 16:53; Start 04/24/17 at 09:00; Stop 04/25/17 at 18:38; Status DC Buspirone HCl (Buspar) 10 mg TID@0900,1400,1700 PO Last administered on 17:46; Start 04/26/17 at 09:00 Trazodone HCl (Desyrel) 50 mg QHS PO Last administered on 04/27/17 20:25; Start 04/25/17 at 21:00; Stop 04/28/17 at 18:39; Status DC Trazodone HCl (Desyrel) 50 mg PRN QHS PRN PO INSOMNIA Last administered on 04/28 00:59; Start 04/25/17 at 18:45; Stop 04/28/17 at 18:39; Status DC Aspirin (Aspirin Enteric Coated) 162 mg DAILYWBKFT PO Last administered on 05/03 08:08; Start 04/28/17 at 08:00 Trazodone HCl (Desyrel) 75 mg PRN QHS PRN PO INSOMNIA Last administered on 05/03 19:47; Start 04/28/17 at 18:45 Trazodone HCl (Desyrel) 75 mg QHS PO Last administered on 05/03/17 19:35; Start 04/28/17 at 21:00 Quetiapine Fumarate (SEROquel) 62.5 mg QHS PO Last administered on 05/01/17 20 :55; Start 05/01/17 at 21:00; Stop 05/02/17 at 18:26; Status DC Quetiapine Fumarate (SEROquel) 75 mg QHS PO Last administered on 05/03/17 19: 35; Start 05/02/17 at 21:00 Active Scripts Active Reported Tylenol (Acetaminophen) 325 Mg Tablet 650 Mg PO PRN Q4HRS PRN Triamcinolone Acetonide 15 Gm Cream..g. 1 Shay TP PRN DAILY PRN Ibuprofen 400 Mg Tablet 1-2 Tab PO Tums (Calcium Carbonate) 200 Mg Tab.chew 2 Tab PO PRN Q6-8HRS PRN Maalox Advanced Suspension (Mag Hydrox/Aluminum Hyd/Simeth) 355 Ml Oral.susp 30 Ml PO Colace (Docusate Sodium) 100 Mg Capsule 100 Mg PO PRN BID PRN Lorazepam 0.5 Mg Tablet 0.5 Mg PO QHS Buspirone Hcl 5 Mg Tablet 5 Mg PO BID@0900,1400 Seroquel (Quetiapine Fumarate) 25 Mg Tablet 25 Mg PO BID@0900,1400 Seroquel (Quetiapine Fumarate) 50 Mg Tablet 50 Mg PO QHS Multivitamins (Multivitamin) 1 Each Tablet 1 Each PO Omeprazole 20 Mg Capsule.dr 20 Mg PO DAILY08 Aleve (Naproxen Sodium) 220 Mg Tablet 220 Mg PO BID I have reviewed the current psychotropics carefully including drug interactions. Risk benefit ratio favors no change other than as noted in my dictated progress note. 

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
[2017-05-04 05:47] VITALS: BP 131/78
[2017-05-04] MEDS: busPIRone 10 MG TABLET. PO SCH ×3 (08:56→17:19)
[2017-05-04] MEDS: QUEtiapine 25 MG TABLET. PO SCH ×2 (08:56→14:27)
[2017-05-04] MEDS: ASPIRIN ENTERIC COATED 81 MG TABLET.DR. PO SCH (08:56)
[2017-05-04] MEDS: PANTOPRAZOLE 40 MG TABLET. PO SCH (08:56)
[2017-05-04 16:02] VITALS: BP 124/83
[2017-05-04] MEDS: MIRTAZAPINE 15 MG TABLET PO SCH (19:38)
[2017-05-04] MEDS: QUEtiapine 50 MG TABLET. PO SCH (19:38)
[2017-05-04] MEDS: traZODone 50 MG TABLET. PO SCH (19:39)
--- NOTE | 2017-05-04 19:50 | PDOC ---
Exam Note: Reginaldo Note: Please also refer to the separate dictated note~for this date of service dictated separately.~Patient seen individually. Discussed the patient with Nursing staff reviewed the chart.~Reviewed interim history and current functioning. Reviewed vital signs,~Labs/ Radiology~and current medications noted below. Continue current treatment with the changes noted in the dictated addendum note Assessment: Vital Signs: Vital Signs Date Time Temp Pulse Resp B/P (MAP) Pulse Ox O2 Delivery O2 Flow Rate FiO2 05/04/17 16:02 97.8 74 16 124/83 (97) 98 05/03/17 05:50 Room Air 04/29/17 16:12 0.0 I&O Intake and Output 05/04/17 07:00 Intake Total 360 ml Balance 360 ml Intake Oral 360 ml # Bowel Movements 1 Current Medications: Meds: Current Medications Acetaminophen (Tylenol) 650 mg PRN Q6HRS PRN PO PAIN / TEMP; Start 04/18/17 at 18:15; Stop 04/18/17 at 18:57; Status DC Multi-Ingredient Ointment (Analgesic [place]) 1 shay PRN QID PRN TP MUSCLE PAIN; Start 04/18/17 at 18:15 Al Hydroxide/Mg Hydroxide (Mylanta Plus Xs) 15 ml PRN AFTMEALHC PRN PO DYSPEPSIA; Start 04/18/17 at 18:15 Magnesium Hydroxide (Milk Of Magnesia) 2,400 mg PRN QHS PRN PO CONSTIPATION Last administered on 05/03/17t 17:46; Start 04/18/17 at 18:15 Acetaminophen (Tylenol) 650 mg PRN Q4HRS PRN PO PAIN; Start 04/18/17 at 19:00 Buspirone HCl (Buspar) 5 mg BID@0900,1400 PO Last administered on 04/23/17 14 :19; Start 04/19/17 at 09:00; Stop 04/23/17 at 18:46; Status DC Calcium Carbonate/ Glycine (Tums) 500 mg PRN DAILY PRN PO gi upset; Start at 19:00 Docusate Sodium (Colace) 100 mg PRN BID PRN PO constipation ; Start 04/18/17 at 19:00 Ibuprofen (Motrin) 400 mg PRN Q6HRS PRN PO PAIN; Start 04/18/17 at 19:00 Lorazepam (Ativan) 0.5 mg QHS PO Last administered on 04/21/17 19:47; Start 04/18/17 at 21:00; Stop 04/22/17 at 12:58; Status DC Quetiapine Fumarate (SEROquel) 25 mg BID@0900,1400 PO Last administered on 05/04 14:27; Start 04/19/17 at 09:00 Quetiapine Fumarate (SEROquel) 50 mg QHS PO Last administered on 04/30/17 19: 13; Start 04/18/17 at 21:00; Stop 05/01/17 at 18:49; Status DC Triamcinolone Acetonide (Aristocort) 1 shay PRN DAILY PRN TP RASH; Start at 19:00 Non-Formulary Medication 220 mg BID PO ; Start 04/18/17 at 21:00; Stop at 21:00; Status DC Pantoprazole Sodium (Protonix) 40 mg DAILYAC PO Last administered on 05/04/17 08:56; Start 04/19/17 at 07:30 Ibuprofen (Motrin) 800 mg PRN Q6HRS PRN PO PAIN Last administered on 04/29/17 21:33; Start 04/18/17 at 19:15 Olanzapine (ZyPREXA ZYDIS) 5 mg 1X ONCE PO Last administered on 04/18/17 23: 50; Start 04/19/17 at 00:00; Stop 04/19/17 at 00:01; Status DC Olanzapine (ZyPREXA ZYDIS) 2.5 mg PRN Q2HR PRN PO ANXIETY / AGITATION Last administered on 04/28/17 22:23; Start 04/18/17 at 23:45 Vitamin D (Vitamin D3) 50,000 unit WEEKLY PO ; Start 04/19/17 at 18:00; Stop 04/19/17 at 18:00; Status DC Mirtazapine (Remeron) 15 mg QHS PO Last administered on 05/04/17 19:38; Start 04/19/17 at 21:00 Vitamin D (Vitamin D3) 50,000 unit WEEKLY PO Last administered on 05/03/17 08: 09; Start 04/19/17 at 21:00 Vitamin D (Vitamin D3) 50,000 unit WEEKLY PO ; Start 04/21/17 at 19:00; Status UNV Lorazepam (Ativan) 0.25 mg QHS PO Last administered on 04/24/17 19:52; Start 04/22/17 at 21:00; Stop 04/24/17 at 21:01; Status DC Buspirone HCl (Buspar) 5 mg TID@0900,1400,1700 PO Last administered on 16:53; Start 04/24/17 at 09:00; Stop 04/25/17 at 18:38; Status DC Buspirone HCl (Buspar) 10 mg TID@0900,1400,1700 PO Last administered on 17:19; Start 04/26/17 at 09:00 Trazodone HCl (Desyrel) 50 mg QHS PO Last administered on 04/27/17 20:25; Start 04/25/17 at 21:00; Stop 04/28/17 at 18:39; Status DC Trazodone HCl (Desyrel) 50 mg PRN QHS PRN PO INSOMNIA Last administered on 04/28 00:59; Start 04/25/17 at 18:45; Stop 04/28/17 at 18:39; Status DC Aspirin (Aspirin Enteric Coated) 162 mg DAILYWBKFT PO Last administered on 05/04 08:56; Start 04/28/17 at 08:00 Trazodone HCl (Desyrel) 75 mg PRN QHS PRN PO INSOMNIA Last administered on 05/03 19:47; Start 04/28/17 at 18:45 Trazodone HCl (Desyrel) 75 mg QHS PO Last administered on 05/04/17 19:39; Start 04/28/17 at 21:00 Quetiapine Fumarate (SEROquel) 62.5 mg QHS PO Last administered on 05/01/17 20 :55; Start 05/01/17 at 21:00; Stop 05/02/17 at 18:26; Status DC Quetiapine Fumarate (SEROquel) 75 mg QHS PO Last administered on 05/04/17 19: 38; Start 05/02/17 at 21:00 Active Scripts Active Reported Tylenol (Acetaminophen) 325 Mg Tablet 650 Mg PO PRN Q4HRS PRN Triamcinolone Acetonide 15 Gm Cream..g. 1 Shay TP PRN DAILY PRN Ibuprofen 400 Mg Tablet 1-2 Tab PO Tums (Calcium Carbonate) 200 Mg Tab.chew 2 Tab PO PRN Q6-8HRS PRN Maalox Advanced Suspension (Mag Hydrox/Aluminum Hyd/Simeth) 355 Ml Oral.susp 30 Ml PO Colace (Docusate Sodium) 100 Mg Capsule 100 Mg PO PRN BID PRN Lorazepam 0.5 Mg Tablet 0.5 Mg PO QHS Buspirone Hcl 5 Mg Tablet 5 Mg PO BID@0900,1400 Seroquel (Quetiapine Fumarate) 25 Mg Tablet 25 Mg PO BID@0900,1400 Seroquel (Quetiapine Fumarate) 50 Mg Tablet 50 Mg PO QHS Multivitamins (Multivitamin) 1 Each Tablet 1 Each PO Omeprazole 20 Mg Capsule.dr 20 Mg PO DAILY08 Aleve (Naproxen Sodium) 220 Mg Tablet 220 Mg PO BID I have reviewed the current psychotropics carefully including drug interactions. Risk benefit ratio favors no change other than as noted in my dictated progress note. 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
--- NOTE | 2017-05-05 04:21 | PN ---
DATE: 05/03/2017 This late entry 05/03/2017 covers elements not covered in my initial note of 05/03/2017. Met with the patient in the evening of 05/03/2017. Staffed at a treatment team meeting with the entire team morning of 05/03/2017. The patient was quite agitated, labile the previous evening, resistive to medications at times, suspicious. REVIEW OF SYSTEMS: Ambulation impaired, in wheelchair. No CV, , pulmonary, eye, ENT system symptoms on review. MENTAL STATUS EXAM: Oriented to herself. Insight, judgment, recent and remote memory, attention, concentration, fund of knowledge poor, consistent with her diagnosis. The patient was staffed at a treatment team meeting with entire team morning of 05/03/2017, addressed all of this and changes in her psychotropics. IMPRESSION: Unchanged from initial note. PLAN: Continue psychotropics mentioned in my initial note, may need to increase Seroquel further if mood lability recurs. MATTI THOMAS MD DR: ALTON/michael JOB#: [id number] / [id number]
[2017-05-05 05:54] VITALS: BP 155/79
[2017-05-05] MEDS: busPIRone 10 MG TABLET. PO SCH ×3 (07:43→17:30)
[2017-05-05] MEDS: ASPIRIN ENTERIC COATED 81 MG TABLET.DR. PO SCH (07:43)
[2017-05-05] MEDS: QUEtiapine 25 MG TABLET. PO SCH ×2 (07:43→13:39)
[2017-05-05] MEDS: PANTOPRAZOLE 40 MG TABLET. PO SCH (07:43)
[2017-05-05 16:20] VITALS: BP 99/62
[2017-05-05] MEDS: QUEtiapine 50 MG TABLET. PO SCH (20:24)
[2017-05-05] MEDS: traZODone 50 MG TABLET. PO SCH (20:24)
[2017-05-05] MEDS: MIRTAZAPINE 15 MG TABLET PO SCH (20:24)
[2017-05-05] MEDS: MAGNESIUM HYDROXIDE 2,400 MG/30 ML ORAL.SUSP. PO PRN (20:28)
--- NOTE | 2017-05-05 21:33 | PDOC ---
Exam Note: Reginaldo Note: Please also refer to the separate dictated note~for this date of service dictated separately.~Patient seen individually. Discussed the patient with Nursing staff reviewed the chart.~Reviewed interim history and current functioning. Reviewed vital signs,~Labs/ Radiology~and current medications noted below. Continue current treatment with the changes noted in the dictated addendum note Assessment: Vital Signs: Vital Signs Date Time Temp Pulse Resp B/P (MAP) Pulse Ox O2 Delivery O2 Flow Rate FiO2 05/05/17 16:20 98.7 101 20 99/62 (74) 98 Room Air 04/29/17 16:12 0.0 I&O Intake and Output 05/05/17 07:00 Intake Total 1680 ml Balance 1680 ml Intake Oral 1680 ml Current Medications: Meds: Current Medications Acetaminophen (Tylenol) 650 mg PRN Q6HRS PRN PO PAIN / TEMP; Start 04/18/17 at 18:15; Stop 04/18/17 at 18:57; Status DC Multi-Ingredient Ointment (Analgesic [place]) 1 shay PRN QID PRN TP MUSCLE PAIN; Start 04/18/17 at 18:15 Al Hydroxide/Mg Hydroxide (Mylanta Plus Xs) 15 ml PRN AFTMEALHC PRN PO DYSPEPSIA; Start 04/18/17 at 18:15 Magnesium Hydroxide (Milk Of Magnesia) 2,400 mg PRN QHS PRN PO CONSTIPATION Last administered on 05/05/17t 20:28; Start 04/18/17 at 18:15 Acetaminophen (Tylenol) 650 mg PRN Q4HRS PRN PO PAIN; Start 04/18/17 at 19:00 Buspirone HCl (Buspar) 5 mg BID@0900,1400 PO Last administered on 04/23/17 14 :19; Start 04/19/17 at 09:00; Stop 04/23/17 at 18:46; Status DC Calcium Carbonate/ Glycine (Tums) 500 mg PRN DAILY PRN PO gi upset; Start at 19:00 Docusate Sodium (Colace) 100 mg PRN BID PRN PO constipation ; Start 04/18/17 at 19:00 Ibuprofen (Motrin) 400 mg PRN Q6HRS PRN PO PAIN; Start 04/18/17 at 19:00 Lorazepam (Ativan) 0.5 mg QHS PO Last administered on 04/21/17 19:47; Start 04/18/17 at 21:00; Stop 04/22/17 at 12:58; Status DC Quetiapine Fumarate (SEROquel) 25 mg BID@0900,1400 PO Last administered on 05/05 13:39; Start 04/19/17 at 09:00 Quetiapine Fumarate (SEROquel) 50 mg QHS PO Last administered on 04/30/17 19: 13; Start 04/18/17 at 21:00; Stop 05/01/17 at 18:49; Status DC Triamcinolone Acetonide (Aristocort) 1 shay PRN DAILY PRN TP RASH; Start at 19:00 Non-Formulary Medication 220 mg BID PO ; Start 04/18/17 at 21:00; Stop at 21:00; Status DC Pantoprazole Sodium (Protonix) 40 mg DAILYAC PO Last administered on 05/05/17 07:43; Start 04/19/17 at 07:30 Ibuprofen (Motrin) 800 mg PRN Q6HRS PRN PO PAIN Last administered on 04/29/17 21:33; Start 04/18/17 at 19:15 Olanzapine (ZyPREXA ZYDIS) 5 mg 1X ONCE PO Last administered on 04/18/17 23: 50; Start 04/19/17 at 00:00; Stop 04/19/17 at 00:01; Status DC Olanzapine (ZyPREXA ZYDIS) 2.5 mg PRN Q2HR PRN PO ANXIETY / AGITATION Last administered on 04/28/17 22:23; Start 04/18/17 at 23:45 Vitamin D (Vitamin D3) 50,000 unit WEEKLY PO ; Start 04/19/17 at 18:00; Stop 04/19/17 at 18:00; Status DC Mirtazapine (Remeron) 15 mg QHS PO Last administered on 05/05/17 20:24; Start 04/19/17 at 21:00 Vitamin D (Vitamin D3) 50,000 unit WEEKLY PO Last administered on 05/03/17 08: 09; Start 04/19/17 at 21:00 Vitamin D (Vitamin D3) 50,000 unit WEEKLY PO ; Start 04/21/17 at 19:00; Status UNV Lorazepam (Ativan) 0.25 mg QHS PO Last administered on 04/24/17 19:52; Start 04/22/17 at 21:00; Stop 04/24/17 at 21:01; Status DC Buspirone HCl (Buspar) 5 mg TID@0900,1400,1700 PO Last administered on 16:53; Start 04/24/17 at 09:00; Stop 04/25/17 at 18:38; Status DC Buspirone HCl (Buspar) 10 mg TID@0900,1400,1700 PO Last administered on 17:30; Start 04/26/17 at 09:00 Trazodone HCl (Desyrel) 50 mg QHS PO Last administered on 04/27/17 20:25; Start 04/25/17 at 21:00; Stop 04/28/17 at 18:39; Status DC Trazodone HCl (Desyrel) 50 mg PRN QHS PRN PO INSOMNIA Last administered on 04/28 00:59; Start 04/25/17 at 18:45; Stop 04/28/17 at 18:39; Status DC Aspirin (Aspirin Enteric Coated) 162 mg DAILYWBKFT PO Last administered on 05/05 07:43; Start 04/28/17 at 08:00 Trazodone HCl (Desyrel) 75 mg PRN QHS PRN PO INSOMNIA Last administered on 05/03 19:47; Start 04/28/17 at 18:45 Trazodone HCl (Desyrel) 75 mg QHS PO Last administered on 05/05/17 20:24; Start 04/28/17 at 21:00 Quetiapine Fumarate (SEROquel) 62.5 mg QHS PO Last administered on 05/01/17 20 :55; Start 05/01/17 at 21:00; Stop 05/02/17 at 18:26; Status DC Quetiapine Fumarate (SEROquel) 75 mg QHS PO Last administered on 05/05/17 20: 24; Start 05/02/17 at 21:00 Active Scripts Active Reported Tylenol (Acetaminophen) 325 Mg Tablet 650 Mg PO PRN Q4HRS PRN Triamcinolone Acetonide 15 Gm Cream..g. 1 Shay TP PRN DAILY PRN Ibuprofen 400 Mg Tablet 1-2 Tab PO Tums (Calcium Carbonate) 200 Mg Tab.chew 2 Tab PO PRN Q6-8HRS PRN Maalox Advanced Suspension (Mag Hydrox/Aluminum Hyd/Simeth) 355 Ml Oral.susp 30 Ml PO Colace (Docusate Sodium) 100 Mg Capsule 100 Mg PO PRN BID PRN Lorazepam 0.5 Mg Tablet 0.5 Mg PO QHS Buspirone Hcl 5 Mg Tablet 5 Mg PO BID@0900,1400 Seroquel (Quetiapine Fumarate) 25 Mg Tablet 25 Mg PO BID@0900,1400 Seroquel (Quetiapine Fumarate) 50 Mg Tablet 50 Mg PO QHS Multivitamins (Multivitamin) 1 Each Tablet 1 Each PO Omeprazole 20 Mg Capsule.dr 20 Mg PO DAILY08 Aleve (Naproxen Sodium) 220 Mg Tablet 220 Mg PO BID I have reviewed the current psychotropics carefully including drug interactions. Risk benefit ratio favors no change other than as noted in my dictated progress note. 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
[2017-05-06 06:06] VITALS: BP 182/79
[2017-05-06] MEDS: busPIRone 10 MG TABLET. PO SCH ×3 (07:57→17:50)
[2017-05-06] MEDS: PANTOPRAZOLE 40 MG TABLET. PO SCH (07:57)
[2017-05-06] MEDS: QUEtiapine 25 MG TABLET. PO SCH ×2 (07:57→14:46)
[2017-05-06] MEDS: ASPIRIN ENTERIC COATED 81 MG TABLET.DR. PO SCH (08:01)
--- NOTE | 2017-05-06 15:58 | PN ---
DATE: 05/04/2017 PSYCHIATRIC PROGRESS NOTE This is a late entry 05/04/2017, covers elements not covered in my initial note 05/04/2017. Met with the patient evening of 05/04/2017. The patient remains confused, was little irritable at times, but redirects. REVIEW OF SYSTEMS: Ambulation impaired, in wheelchair. No CV, , pulmonary, eye system symptoms on review. MENTAL STATUS EXAM: Oriented to herself. Insight, judgment, recent and remote memory, attention, concentration, fund of knowledge poor, consistent with her diagnosis mentioned in my initial note. PLAN: Continue current psychotropics mentioned in my initial note. Adjust as clinically indicated. MAN Abiodun THOMAS MD DR: ALTON/michael JOB#: [id number] / [id number]
[2017-05-06 16:15] VITALS: BP 144/97
--- NOTE | 2017-05-06 17:10 | PN ---
DATE: 05/05/2017 This is a late entry 05/05/2017 covers elements not covered in my initial note on 05/05/2017. I met with the patient evening of 05/05/2017. The patient was irritable in the morning, slept 8 hours. REVIEW OF SYSTEMS: Ambulation impaired, in wheelchair. No CV, , pulmonary, eye, ENT system symptoms on review. Reliability poor. MENTAL STATUS EXAM: Oriented to herself. Insight, judgment, recent and remote memory, attention, concentration, fund of knowledge poor, consistent with her diagnosis mentioned in my initial note. PLAN: Continue psychotropics mentioned in my initial note. Adjust as clinically indicated. MAN Abiodun THOMAS MD DR: ALTON/michael JOB#: [id number] / [id number]
--- NOTE | 2017-05-06 19:55 | PDOC ---
Exam Note: Reginaldo Note: Please also refer to the separate dictated note~for this date of service dictated separately.~Patient seen individually. Discussed the patient with Nursing staff reviewed the chart.~Reviewed interim history and current functioning. Reviewed vital signs,~Labs/ Radiology~and current medications noted below. Continue current treatment with the changes noted in the dictated addendum note Assessment: Vital Signs: Vital Signs Date Time Temp Pulse Resp B/P (MAP) Pulse Ox O2 Delivery O2 Flow Rate FiO2 05/06/17 16:15 97.7 76 18 144/97 (113) 98 05/05/17 16:20 Room Air I&O Intake and Output 05/06/17 07:00 Intake Total 600 ml Balance 600 ml Intake Oral 600 ml Current Medications: Meds: Current Medications Acetaminophen (Tylenol) 650 mg PRN Q6HRS PRN PO PAIN / TEMP; Start 04/18/17 at 18:15; Stop 04/18/17 at 18:57; Status DC Multi-Ingredient Ointment (Analgesic [place]) 1 shay PRN QID PRN TP MUSCLE PAIN; Start 04/18/17 at 18:15 Al Hydroxide/Mg Hydroxide (Mylanta Plus Xs) 15 ml PRN AFTMEALHC PRN PO DYSPEPSIA; Start 04/18/17 at 18:15 Magnesium Hydroxide (Milk Of Magnesia) 2,400 mg PRN QHS PRN PO CONSTIPATION Last administered on 05/05/17 20:28; Start 04/18/17 at 18:15 Acetaminophen (Tylenol) 650 mg PRN Q4HRS PRN PO PAIN Last administered on 05/06 07:57; Start 04/18/17 at 19:00 Buspirone HCl (Buspar) 5 mg BID@0900,1400 PO Last administered on 04/23/17 14 :19; Start 04/19/17 at 09:00; Stop 04/23/17 at 18:46; Status DC Calcium Carbonate/ Glycine (Tums) 500 mg PRN DAILY PRN PO gi upset; Start at 19:00 Docusate Sodium (Colace) 100 mg PRN BID PRN PO constipation ; Start 04/18/17 at 19:00 Ibuprofen (Motrin) 400 mg PRN Q6HRS PRN PO PAIN; Start 04/18/17 at 19:00 Lorazepam (Ativan) 0.5 mg QHS PO Last administered on 04/21/17 19:47; Start 04/18/17 at 21:00; Stop 04/22/17 at 12:58; Status DC Quetiapine Fumarate (SEROquel) 25 mg BID@0900,1400 PO Last administered on 14:46; Start 04/19/17 at 09:00 Quetiapine Fumarate (SEROquel) 50 mg QHS PO Last administered on 04/30/17 19: 13; Start 04/18/17 at 21:00; Stop 05/01/17 at 18:49; Status DC Triamcinolone Acetonide (Aristocort) 1 shay PRN DAILY PRN TP RASH; Start at 19:00 Non-Formulary Medication 220 mg BID PO ; Start 04/18/17 at 21:00; Stop at 21:00; Status DC Pantoprazole Sodium (Protonix) 40 mg DAILYAC PO Last administered on 07:57; Start 04/19/17 at 07:30 Ibuprofen (Motrin) 800 mg PRN Q6HRS PRN PO PAIN Last administered on 04/29/17 21:33; Start 04/18/17 at 19:15 Olanzapine (ZyPREXA ZYDIS) 5 mg 1X ONCE PO Last administered on 04/18/17 23: 50; Start 04/19/17 at 00:00; Stop 04/19/17 at 00:01; Status DC Olanzapine (ZyPREXA ZYDIS) 2.5 mg PRN Q2HR PRN PO ANXIETY / AGITATION Last administered on 04/28/17 22:23; Start 04/18/17 at 23:45 Vitamin D (Vitamin D3) 50,000 unit WEEKLY PO ; Start 04/19/17 at 18:00; Stop 04/19/17 at 18:00; Status DC Mirtazapine (Remeron) 15 mg QHS PO Last administered on 05/05/17 20:24; Start 04/19/17 at 21:00 Vitamin D (Vitamin D3) 50,000 unit WEEKLY PO Last administered on 05/03/17 08: 09; Start 04/19/17 at 21:00 Vitamin D (Vitamin D3) 50,000 unit WEEKLY PO ; Start 04/21/17 at 19:00; Status UNV Lorazepam (Ativan) 0.25 mg QHS PO Last administered on 04/24/17 19:52; Start 04/22/17 at 21:00; Stop 04/24/17 at 21:01; Status DC Buspirone HCl (Buspar) 5 mg TID@0900,1400,1700 PO Last administered on 16:53; Start 04/24/17 at 09:00; Stop 04/25/17 at 18:38; Status DC Buspirone HCl (Buspar) 10 mg TID@0900,1400,1700 PO Last administered on 17:50; Start 04/26/17 at 09:00 Trazodone HCl (Desyrel) 50 mg QHS PO Last administered on 04/27/17 20:25; Start 04/25/17 at 21:00; Stop 04/28/17 at 18:39; Status DC Trazodone HCl (Desyrel) 50 mg PRN QHS PRN PO INSOMNIA Last administered on 04/28 00:59; Start 04/25/17 at 18:45; Stop 04/28/17 at 18:39; Status DC Aspirin (Aspirin Enteric Coated) 162 mg DAILYWBKFT PO Last administered on 08:01; Start 04/28/17 at 08:00 Trazodone HCl (Desyrel) 75 mg PRN QHS PRN PO INSOMNIA Last administered on 05/03 19:47; Start 04/28/17 at 18:45 Trazodone HCl (Desyrel) 75 mg QHS PO Last administered on 05/05/17 20:24; Start 04/28/17 at 21:00 Quetiapine Fumarate (SEROquel) 62.5 mg QHS PO Last administered on 05/01/17 20 :55; Start 05/01/17 at 21:00; Stop 05/02/17 at 18:26; Status DC Quetiapine Fumarate (SEROquel) 75 mg QHS PO Last administered on 05/05/17 20: 24; Start 05/02/17 at 21:00 Active Scripts Active Reported Tylenol (Acetaminophen) 325 Mg Tablet 650 Mg PO PRN Q4HRS PRN Triamcinolone Acetonide 15 Gm Cream..g. 1 Shay TP PRN DAILY PRN Ibuprofen 400 Mg Tablet 1-2 Tab PO Tums (Calcium Carbonate) 200 Mg Tab.chew 2 Tab PO PRN Q6-8HRS PRN Maalox Advanced Suspension (Mag Hydrox/Aluminum Hyd/Simeth) 355 Ml Oral.susp 30 Ml PO Colace (Docusate Sodium) 100 Mg Capsule 100 Mg PO PRN BID PRN Lorazepam 0.5 Mg Tablet 0.5 Mg PO QHS Buspirone Hcl 5 Mg Tablet 5 Mg PO BID@0900,1400 Seroquel (Quetiapine Fumarate) 25 Mg Tablet 25 Mg PO BID@0900,1400 Seroquel (Quetiapine Fumarate) 50 Mg Tablet 50 Mg PO QHS Multivitamins (Multivitamin) 1 Each Tablet 1 Each PO Omeprazole 20 Mg Capsule.dr 20 Mg PO DAILY08 Aleve (Naproxen Sodium) 220 Mg Tablet 220 Mg PO BID I have reviewed the current psychotropics carefully including drug interactions. Risk benefit ratio favors no change other than as noted in my dictated progress note. 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
[2017-05-06] MEDS: traZODone 50 MG TABLET. PO SCH (20:18)
[2017-05-06] MEDS: QUEtiapine 50 MG TABLET. PO SCH (20:18)
[2017-05-06] MEDS: MIRTAZAPINE 15 MG TABLET PO SCH (20:18)
[2017-05-07 05:52] VITALS: BP 150/63
[2017-05-07 07:21] LABS: BASO % 1 % (0-3); EOS # 0.2 x10^3/uL (0.0-0.7); EOS % 3 % (0-3); HEMATOCRIT 34.7 % (36.0-47.0); HEMOGLOBIN 11.7 g/dL (12.0-15.5); LYMPH % 15 % (24-48); MEAN CORPUSCULAR HEMOGLOBIN 29 pg (25-35); MEAN CORPUSCULAR HGB CONC 34 g/dL (31-37); MEAN CORPUSCULAR VOLUME 86 fL (79-100); MONO # 0.5 x10^3/uL (0.0-1.1); MONO % 7 % (0-9); NEUT % 75 % (31-73); PLATELET COUNT 295 x10^3/uL (140-400); RED BLOOD COUNT 4.04 x10^6/uL (3.50-5.40); RED CELL DISTRIBUTION WIDTH 13.4 % (11.5-14.5); WHITE BLOOD COUNT 6.8 x10^3/uL (4.0-11.0)
[2017-05-07 07:29] LABS: ALBUMIN 2.9 g/dL (3.4-5.0); ALBUMIN/GLOBULIN RATIO 0.7 (1.0-1.7); CALCIUM 9.6 mg/dL (8.5-10.1); GFR 52.3; POTASSIUM 4.4 mmol/L (3.5-5.1); TOTAL BILIRUBIN 0.3 mg/dL (0.2-1.0); TOTAL PROTEIN 6.9 g/dL (6.4-8.2)
[2017-05-07] MEDS: PANTOPRAZOLE 40 MG TABLET. PO SCH (08:05)
[2017-05-07] MEDS: ASPIRIN ENTERIC COATED 81 MG TABLET.DR. PO SCH (08:05)
[2017-05-07] MEDS: busPIRone 10 MG TABLET. PO SCH ×3 (08:05→16:52)
[2017-05-07] MEDS: QUEtiapine 25 MG TABLET. PO SCH ×2 (08:05→14:11)
[2017-05-07 15:54] VITALS: BP 154/80
[2017-05-07] MEDS: QUEtiapine 50 MG TABLET. PO SCH (20:30)
[2017-05-07] MEDS: MIRTAZAPINE 15 MG TABLET PO SCH (20:30)
[2017-05-07] MEDS: traZODone 50 MG TABLET. PO SCH (20:32)
--- NOTE | 2017-05-07 21:22 | PDOC ---
Exam Note: Reginaldo Note: Please also refer to the separate dictated note~for this date of service dictated separately.~Patient seen individually. Discussed the patient with Nursing staff reviewed the chart.~Reviewed interim history and current functioning. Reviewed vital signs,~Labs/ Radiology~and current medications noted below. Continue current treatment with the changes noted in the dictated addendum note Assessment: Vital Signs: Vital Signs Date Time Temp Pulse Resp B/P (MAP) Pulse Ox O2 Delivery O2 Flow Rate FiO2 05/07/17 15:54 98.8 87 20 154/80 (104) 96 05/05/17 16:20 Room Air I&O Intake and Output 05/07/17 06:59 Intake Total 1080 ml Balance 1080 ml Intake Oral 1080 ml # Bowel Movements 2 Labs: Laboratory Tests Test 05/07/17 07:07 White Blood Count 6.8 x10^3/uL (4.0-11.0) Red Blood Count 4.04 x10^6/uL (3.50-5.40) Hemoglobin 11.7 g/dL (12.0-15.5) L Hematocrit 34.7 % (36.0-47.0) L Mean Corpuscular Volume 86 fL (79-100) Mean Corpuscular Hemoglobin 29 pg (25-35) Mean Corpuscular Hemoglobin Concent 34 g/dL (31-37) Red Cell Distribution Width 13.4 % (11.5-14.5) Platelet Count 295 x10^3/uL (140-400) Neutrophils (%) (Auto) 75 % (31-73) H Lymphocytes (%) (Auto) 15 % (24-48) L Monocytes (%) (Auto) 7 % (0-9) Eosinophils (%) (Auto) 3 % (0-3) Basophils (%) (Auto) 1 % (0-3) Neutrophils # (Auto) 5.0 x10^3uL (1.8-7.7) Lymphocytes # (Auto) 1.0 x10^3/uL (1.0-4.8) Monocytes # (Auto) 0.5 x10^3/uL (0.0-1.1) Eosinophils # (Auto) 0.2 x10^3/uL (0.0-0.7) Basophils # (Auto) 0.0 x10^3/uL (0.0-0.2) Sodium Level 141 mmol/L (136-145) Potassium Level 4.4 mmol/L (3.5-5.1) Chloride Level 102 mmol/L (98-107) Carbon Dioxide Level 31 mmol/L (21-32) Anion Gap 8 (6-14) Blood Urea Nitrogen 13 mg/dL (7-20) Creatinine 1.0 mg/dL (0.6-1.0) Estimated GFR (Cockcroft-Gault) 52.3 BUN/Creatinine Ratio 13 (6-20) Glucose Level 114 mg/dL (70-99) H Calcium Level 9.6 mg/dL (8.5-10.1) Total Bilirubin 0.3 mg/dL (0.2-1.0) Aspartate Amino Transferase (AST) 20 U/L (15-37) Alanine Aminotransferase (ALT) 22 U/L (14-59) Alkaline Phosphatase 89 U/L (46-116) Total Protein 6.9 g/dL (6.4-8.2) Albumin 2.9 g/dL (3.4-5.0) L Albumin/Globulin Ratio 0.7 (1.0-1.7) L Current Medications: Meds: Current Medications Acetaminophen (Tylenol) 650 mg PRN Q6HRS PRN PO PAIN / TEMP; Start 04/18/17 at 18:15; Stop 04/18/17 at 18:57; Status DC Multi-Ingredient Ointment (Analgesic [place]) 1 shay PRN QID PRN TP MUSCLE PAIN; Start 04/18/17 at 18:15 Al Hydroxide/Mg Hydroxide (Mylanta Plus Xs) 15 ml PRN AFTMEALHC PRN PO DYSPEPSIA; Start 04/18/17 at 18:15 Magnesium Hydroxide (Milk Of Magnesia) 2,400 mg PRN QHS PRN PO CONSTIPATION Last administered on 05/05/17 20:28; Start 04/18/17 at 18:15 Acetaminophen (Tylenol) 650 mg PRN Q4HRS PRN PO PAIN Last administered on 05/06 07:57; Start 04/18/17 at 19:00 Buspirone HCl (Buspar) 5 mg BID@0900,1400 PO Last administered on 04/23/17 14 :19; Start 04/19/17 at 09:00; Stop 04/23/17 at 18:46; Status DC Calcium Carbonate/ Glycine (Tums) 500 mg PRN DAILY PRN PO gi upset; Start at 19:00 Docusate Sodium (Colace) 100 mg PRN BID PRN PO constipation ; Start 04/18/17 at 19:00 Ibuprofen (Motrin) 400 mg PRN Q6HRS PRN PO PAIN; Start 04/18/17 at 19:00 Lorazepam (Ativan) 0.5 mg QHS PO Last administered on 04/21/17 19:47; Start 04/18/17 at 21:00; Stop 04/22/17 at 12:58; Status DC Quetiapine Fumarate (SEROquel) 25 mg BID@0900,1400 PO Last administered on 14:11; Start 04/19/17 at 09:00 Quetiapine Fumarate (SEROquel) 50 mg QHS PO Last administered on 04/30/17 19: 13; Start 04/18/17 at 21:00; Stop 05/01/17 at 18:49; Status DC Triamcinolone Acetonide (Aristocort) 1 shay PRN DAILY PRN TP RASH; Start at 19:00 Non-Formulary Medication 220 mg BID PO ; Start 04/18/17 at 21:00; Stop at 21:00; Status DC Pantoprazole Sodium (Protonix) 40 mg DAILYAC PO Last administered on 08:05; Start 04/19/17 at 07:30 Ibuprofen (Motrin) 800 mg PRN Q6HRS PRN PO PAIN Last administered on 04/29/17 21:33; Start 04/18/17 at 19:15 Olanzapine (ZyPREXA ZYDIS) 5 mg 1X ONCE PO Last administered on 04/18/17 23: 50; Start 04/19/17 at 00:00; Stop 04/19/17 at 00:01; Status DC Olanzapine (ZyPREXA ZYDIS) 2.5 mg PRN Q2HR PRN PO ANXIETY / AGITATION Last administered on 04/28/17 22:23; Start 04/18/17 at 23:45 Vitamin D (Vitamin D3) 50,000 unit WEEKLY PO ; Start 04/19/17 at 18:00; Stop 04/19/17 at 18:00; Status DC Mirtazapine (Remeron) 15 mg QHS PO Last administered on 05/07/17 20:30; Start 04/19/17 at 21:00 Vitamin D (Vitamin D3) 50,000 unit WEEKLY PO Last administered on 05/03/17 08: 09; Start 04/19/17 at 21:00 Vitamin D (Vitamin D3) 50,000 unit WEEKLY PO ; Start 04/21/17 at 19:00; Status UNV Lorazepam (Ativan) 0.25 mg QHS PO Last administered on 04/24/17 19:52; Start 04/22/17 at 21:00; Stop 04/24/17 at 21:01; Status DC Buspirone HCl (Buspar) 5 mg TID@0900,1400,1700 PO Last administered on 16:53; Start 04/24/17 at 09:00; Stop 04/25/17 at 18:38; Status DC Buspirone HCl (Buspar) 10 mg TID@0900,1400,1700 PO Last administered on 16:52; Start 04/26/17 at 09:00 Trazodone HCl (Desyrel) 50 mg QHS PO Last administered on 04/27/17 20:25; Start 04/25/17 at 21:00; Stop 04/28/17 at 18:39; Status DC Trazodone HCl (Desyrel) 50 mg PRN QHS PRN PO INSOMNIA Last administered on 04/28 00:59; Start 04/25/17 at 18:45; Stop 04/28/17 at 18:39; Status DC Aspirin (Aspirin Enteric Coated) 162 mg DAILYWBKFT PO Last administered on 08:05; Start 04/28/17 at 08:00 Trazodone HCl (Desyrel) 75 mg PRN QHS PRN PO INSOMNIA Last administered on 05/03 19:47; Start 04/28/17 at 18:45 Trazodone HCl (Desyrel) 75 mg QHS PO Last administered on 05/07/17 20:32; Start 04/28/17 at 21:00 Quetiapine Fumarate (SEROquel) 62.5 mg QHS PO Last administered on 05/01/17 20 :55; Start 05/01/17 at 21:00; Stop 05/02/17 at 18:26; Status DC Quetiapine Fumarate (SEROquel) 75 mg QHS PO Last administered on 05/07/17 20: 30; Start 05/02/17 at 21:00 Active Scripts Active Reported Tylenol (Acetaminophen) 325 Mg Tablet 650 Mg PO PRN Q4HRS PRN Triamcinolone Acetonide 15 Gm Cream..g. 1 Shay TP PRN DAILY PRN Ibuprofen 400 Mg Tablet 1-2 Tab PO Tums (Calcium Carbonate) 200 Mg Tab.chew 2 Tab PO PRN Q6-8HRS PRN Maalox Advanced Suspension (Mag Hydrox/Aluminum Hyd/Simeth) 355 Ml Oral.susp 30 Ml PO Colace (Docusate Sodium) 100 Mg Capsule 100 Mg PO PRN BID PRN Lorazepam 0.5 Mg Tablet 0.5 Mg PO QHS Buspirone Hcl 5 Mg Tablet 5 Mg PO BID@0900,1400 Seroquel (Quetiapine Fumarate) 25 Mg Tablet 25 Mg PO BID@0900,1400 Seroquel (Quetiapine Fumarate) 50 Mg Tablet 50 Mg PO QHS Multivitamins (Multivitamin) 1 Each Tablet 1 Each PO Omeprazole 20 Mg Capsule.dr 20 Mg PO DAILY08 Aleve (Naproxen Sodium) 220 Mg Tablet 220 Mg PO BID I have reviewed the current psychotropics carefully including drug interactions. Risk benefit ratio favors no change other than as noted in my dictated progress note. 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
[2017-05-07] MEDS ORDERED: ASPI-612 PO (22:12)
[2017-05-07] MEDS ORDERED: CHOL500021 PO (22:17)
[2017-05-07] MEDS ORDERED: MAGN2400 PO (22:20)
[2017-05-07] MEDS ORDERED: METH29OI TP (22:22)
[2017-05-07] MEDS ORDERED: MIRT15TA3 PO (22:24)
[2017-05-07] MEDS ORDERED: OLAN5TAB5 PO (22:26)
[2017-05-07] MEDS ORDERED: TRAZ-90 PO ×3 (22:27→22:36)
[2017-05-07] MEDS ORDERED: TRAZ150T49 PO (22:36)
--- NOTE | 2017-05-07 23:05 | PN ---
DATE: 05/06/2017 This is a late entry fir 05/06/2017 covers elements not covered in my initial note of 05/06/2017. SUBJECTIVE: I met with the patient in the evening of 05/06/2017. Overall, the patient remains confused, less paranoid, less agitated. Hyponatremia has recovered. REVIEW OF SYSTEMS: Ambulation impaired, in wheelchair. No CV, , pulmonary, eye, ENT system symptoms on review. Reliability poor. MENTAL STATUS EXAM: Oriented to herself. Insight, judgment, recent and remote memory, attention, concentration, fund of knowledge poor, consistent with her diagnosis mentioned in my initial note. PLAN: Continue psychotropics mentioned in my initial note. Adjust further as clinically indicated. MAN Abiodun THOMAS MD DR: ALTON/michael JOB#: [id number] / [id number]
[2017-05-08 05:52] VITALS: BP 140/76
[2017-05-08] MEDS: PANTOPRAZOLE 40 MG TABLET. PO SCH (07:57)
[2017-05-08] MEDS: QUEtiapine 25 MG TABLET. PO SCH (07:57)
[2017-05-08] MEDS: ASPIRIN ENTERIC COATED 81 MG TABLET.DR. PO SCH (07:57)
[2017-05-08] MEDS: busPIRone 10 MG TABLET. PO SCH (07:57)
--- NOTE | 2017-05-08 17:56 | PDOC ---
Exam Note: Reginaldo Note: Please also refer to the separate dictated note~for this date of service dictated separately.~Patient seen individually. Discussed the patient with Nursing staff reviewed the chart.~Reviewed interim history and current functioning. Reviewed vital signs,~Labs/ Radiology~and current medications noted below. Continue current treatment with the changes noted in the dictated addendum note Assessment: Vital Signs: Vital Signs Date Time Temp Pulse Resp B/P (MAP) Pulse Ox O2 Delivery O2 Flow Rate FiO2 05/08/17 05:52 98.4 76 20 140/76 (97) 96 05/05/17 16:20 Room Air I&O Intake and Output 05/08/17 07:00 Intake Total 1800 ml Balance 1800 ml Intake Oral 1800 ml # Bowel Movements 1 Current Medications: Meds: Current Medications Acetaminophen (Tylenol) 650 mg PRN Q6HRS PRN PO PAIN / TEMP; Start 04/18/17 at 18:15; Stop 04/18/17 at 18:57; Status DC Multi-Ingredient Ointment (Analgesic Bostic) 1 shay PRN QID PRN TP MUSCLE PAIN; Start 04/18/17 at 18:15; Stop 05/08/17 at 13:13; Status DC Al Hydroxide/Mg Hydroxide (Mylanta Plus Xs) 15 ml PRN AFTMEALHC PRN PO DYSPEPSIA; Start 04/18/17 at 18:15; Stop 05/08/17 at 13:13; Status DC Magnesium Hydroxide (Milk Of Magnesia) 2,400 mg PRN QHS PRN PO CONSTIPATION Last administered on 05/05/17 20:28; Start 04/18/17 at 18:15; Stop 05/08/17 at 13:13; Status DC Acetaminophen (Tylenol) 650 mg PRN Q4HRS PRN PO PAIN Last administered on 05/06 07:57; Start 04/18/17 at 19:00; Stop 05/08/17 at 13:13; Status DC Buspirone HCl (Buspar) 5 mg BID@0900,1400 PO Last administered on 04/23/17 14 :19; Start 04/19/17 at 09:00; Stop 04/23/17 at 18:46; Status DC Calcium Carbonate/ Glycine (Tums) 500 mg PRN DAILY PRN PO gi upset; Start at 19:00; Stop 05/08/17 at 13:13; Status DC Docusate Sodium (Colace) 100 mg PRN BID PRN PO constipation ; Start 04/18/17 at 19:00; Stop 05/08/17 at 13:13; Status DC Ibuprofen (Motrin) 400 mg PRN Q6HRS PRN PO PAIN; Start 04/18/17 at 19:00; Stop 05/08/17 at 13:13; Status DC Lorazepam (Ativan) 0.5 mg QHS PO Last administered on 04/21/17 19:47; Start 04/18/17 at 21:00; Stop 04/22/17 at 12:58; Status DC Quetiapine Fumarate (SEROquel) 25 mg BID@0900,1400 PO Last administered on 07:57; Start 04/19/17 at 09:00; Stop 05/08/17 at 13:13; Status DC Quetiapine Fumarate (SEROquel) 50 mg QHS PO Last administered on 04/30/17 19: 13; Start 04/18/17 at 21:00; Stop 05/01/17 at 18:49; Status DC Triamcinolone Acetonide (Aristocort) 1 shay PRN DAILY PRN TP RASH; Start at 19:00; Stop 05/08/17 at 13:13; Status DC Non-Formulary Medication 220 mg BID PO ; Start 04/18/17 at 21:00; Stop at 21:00; Status DC Pantoprazole Sodium (Protonix) 40 mg DAILYAC PO Last administered on 07:57; Start 04/19/17 at 07:30; Stop 05/08/17 at 13:13; Status DC Ibuprofen (Motrin) 800 mg PRN Q6HRS PRN PO PAIN Last administered on 04/29/17 21:33; Start 04/18/17 at 19:15; Stop 05/08/17 at 13:13; Status DC Olanzapine (ZyPREXA ZYDIS) 5 mg 1X ONCE PO Last administered on 04/18/17 23: 50; Start 04/19/17 at 00:00; Stop 04/19/17 at 00:01; Status DC Olanzapine (ZyPREXA ZYDIS) 2.5 mg PRN Q2HR PRN PO ANXIETY / AGITATION Last administered on 04/28/17 22:23; Start 04/18/17 at 23:45; Stop 05/08/17 at 13: 13; Status DC Vitamin D (Vitamin D3) 50,000 unit WEEKLY PO ; Start 04/19/17 at 18:00; Stop 04/19/17 at 18:00; Status DC Mirtazapine (Remeron) 15 mg QHS PO Last administered on 05/07/17 20:30; Start 04/19/17 at 21:00; Stop 05/08/17 at 13:13; Status DC Vitamin D (Vitamin D3) 50,000 unit WEEKLY PO Last administered on 05/03/17 08: 09; Start 04/19/17 at 21:00; Stop 05/08/17 at 13:13; Status DC Vitamin D (Vitamin D3) 50,000 unit WEEKLY PO ; Start 04/21/17 at 19:00; Status UNV Lorazepam (Ativan) 0.25 mg QHS PO Last administered on 04/24/17 19:52; Start 04/22/17 at 21:00; Stop 04/24/17 at 21:01; Status DC Buspirone HCl (Buspar) 5 mg TID@0900,1400,1700 PO Last administered on 16:53; Start 04/24/17 at 09:00; Stop 04/25/17 at 18:38; Status DC Buspirone HCl (Buspar) 10 mg TID@0900,1400,1700 PO Last administered on 07:57; Start 04/26/17 at 09:00; Stop 05/08/17 at 13:13; Status DC Trazodone HCl (Desyrel) 50 mg QHS PO Last administered on 04/27/17 20:25; Start 04/25/17 at 21:00; Stop 04/28/17 at 18:39; Status DC Trazodone HCl (Desyrel) 50 mg PRN QHS PRN PO INSOMNIA Last administered on 04/28 00:59; Start 04/25/17 at 18:45; Stop 04/28/17 at 18:39; Status DC Aspirin (Aspirin Enteric Coated) 162 mg DAILYWBKFT PO Last administered on 07:57; Start 04/28/17 at 08:00; Stop 05/08/17 at 13:13; Status DC Trazodone HCl (Desyrel) 75 mg PRN QHS PRN PO INSOMNIA Last administered on 05/03 19:47; Start 04/28/17 at 18:45; Stop 05/08/17 at 13:13; Status DC Trazodone HCl (Desyrel) 75 mg QHS PO Last administered on 05/07/17 20:32; Start 04/28/17 at 21:00; Stop 05/08/17 at 13:13; Status DC Quetiapine Fumarate (SEROquel) 62.5 mg QHS PO Last administered on 05/01/17 20 :55; Start 05/01/17 at 21:00; Stop 05/02/17 at 18:26; Status DC Quetiapine Fumarate (SEROquel) 75 mg QHS PO Last administered on 05/07/17 20: 30; Start 05/02/17 at 21:00; Stop 05/08/17 at 13:13; Status DC Active Scripts Active Reported Trazodone Hcl 100 Mg Tablet 75 Mg PO HS Trazodone Hcl 100 Mg Tablet 75 Mg PO PRN QHS PRN Trazodone Hcl 100 Mg Tablet 75 Mg PO PRN QHS PRN Zyprexa Zydis (Olanzapine) 5 Mg Tab.rapdis 2.5 Mg PO PRN Q2HR PRN Mirtazapine 15 Mg Tablet 15 Mg PO HS Analgesic Bostic (Methyl Salicylate/Menthol) 28 Gm Oint...g. 1 Shay TP QIDPRN PRN Milk Of Magnesia (Magnesium Hydroxide) 2,400 Mg/10 Ml Oral.susp 2,400 Mg PO PRN QHS D3-50 (Cholecalciferol (Vitamin D3)) 50,000 Unit Capsule 50,000 Unit PO EACH SUNDAY Aspirin Ec (Aspirin) 81 Mg Tablet.dr 162 Mg PO DAILYWBKFT Tylenol (Acetaminophen) 325 Mg Tablet 650 Mg PO PRN Q4HRS PRN Triamcinolone Acetonide 15 Gm Cream..g. 1 Shay TP PRN DAILY PRN Tums (Calcium Carbonate) 200 Mg Tab.chew 2 Tab PO PRN Q6-8HRS PRN Maalox Advanced Suspension (Mag Hydrox/Aluminum Hyd/Simeth) 355 Ml Oral.susp 15 Ml PO Colace (Docusate Sodium) 100 Mg Capsule 100 Mg PO PRN BID PRN Buspirone Hcl 5 Mg Tablet 10 Mg PO TID@0900,1400,1700 Seroquel (Quetiapine Fumarate) 25 Mg Tablet 25 Mg PO BID@0900,1400 Seroquel (Quetiapine Fumarate) 50 Mg Tablet 75 Mg PO QHS Omeprazole 20 Mg Capsule. 20 Mg PO DAILY08 I have reviewed the current psychotropics carefully including drug interactions. Risk benefit ratio favors no change other than as noted in my dictated progress note. 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
--- NOTE | 2017-05-09 05:37 | PN ---
DATE: 05/07/2017 This is a late entry 05/07/2017 covers elements not covered in my initial note 05/07/2017. I met with the patient in the evening of 05/07/2017. The patient is compliant with her medication, remains confused, somewhat sarcastic at times. REVIEW OF SYSTEMS: Ambulation impaired, in wheelchair. No CV, , pulmonary, eye, ENT system symptoms on review. Reliability poor. MENTAL STATUS EXAM: Oriented to herself. Insight, judgment, recent and remote memory, attention, concentration, fund of knowledge poor, consistent with her diagnosis mentioned in my initial note. PLAN: Continue psychotropics mentioned in my initial note. Adjust further as clinically indicated. MATTI THOMAS MD DR: ALTON/michael JOB#: [id number] / [id number]
--- NOTE | 2017-05-09 19:10 | DS ---
DATE OF DISCHARGE: 05/08/2017 DISCHARGE SUMMARY/PSYCHIATRIC PROGRESS NOTE This is a late entry for date of service 05/08/2017, covers elements not covered in my initial note of 05/08/2017. The patient was seen individually. REASON FOR ADMISSION: Please refer to the admission history for details. Briefly, the patient is an 87-year-old female referred to us from [facility] where she presented from [facility] on account of worsening memory deficits, confusion, yelling, screaming, putting herself on the floor, agitation, aggression, believing she was being held captive. She had failed outpatient psychiatric interventions. Behaviors were deemed dangerous, unmanageable at the facility, and she was referred for inpatient psychiatric stabilization. SIGNIFICANT FINDINGS AND CLINICAL COURSE: Following admission, the patient was seen daily individually by myself, followed medically per Dr. Kiser/Dr. Martinez. Initially, she was quite confused, putting herself on the floor, anxious, agitated, and delusional. I met with her daily individually. Adjustments were made in her psychotropics and she gradually seemed to respond to a combination of Seroquel 25 mg at 0900 and 1400 hours and 75 mg at bedtime, BuSpar 10 mg 3 times a day, Zyprexa 2.5 mg every 4 hours p.r.n. psychosis and agitation, Remeron 15 mg at bedtime, trazodone 75 mg at bedtime, may repeat x 1 for insomnia. REVIEW OF SYSTEMS: Prior to discharge on 05/08/2017, ambulation impaired in wheelchair. No CV, , pulmonary, eye, ENT system symptoms on review. Reliability poor. MENTAL STATUS EXAM: Oriented to herself. Insight, judgment, recent and remote memory, attention, concentration, fund of knowledge poor, consistent with her diagnosis. Mood was much less labile, though she is still confused. CONDITION AT DISCHARGE: Improved. FINAL DIAGNOSES: Major neurocognitive disorder, Alzheimer, vascular with depression, delusion, behavioral disturbance; anxiety disorder, unspecified; impulse control disorder, unspecified. Rest diagnoses unchanged from admission. DISCHARGE MEDICATIONS: Please refer to the [facility]AD. DISCHARGE INSTRUCTIONS: Outpatient psychiatric and medical followup at the group home. MATTI THOMAS MD DR: ALTON/michael JOB#: [id number] / [id number]
== END 2017-05-08 09:00 | DRG 57 ==
LOC: GEROPSY 17:36
PROVIDERS: ADMIT Psychiatry & Neurology Psychiatry; ATTEND Psychiatry & Neurology Psychiatry
DX: G30.9 Alzheimer's disease, unspecified (principal); F01.51 Vascular dementia, unspecified severity, with behavioral disturbance; E87.1 Hypo-osmolality and hyponatremia; F10.27 Alcohol dependence with alcohol-induced persisting dementia; F02.81 Dementia in other diseases classified elsewhere, unspecified severity, with behavioral disturbance; F17.200 Nicotine dependence, unspecified, uncomplicated; F22 Delusional disorders; F32.9 Major depressive disorder, single episode, unspecified; F41.9 Anxiety disorder, unspecified; F63.9 Impulse disorder, unspecified; G47.00 Insomnia, unspecified; I10 Essential (primary) hypertension; M19.90 Unspecified osteoarthritis, unspecified site; I48.91 Unspecified atrial fibrillation; Z79.899 Other long term (current) drug therapy; Z81.8 Family history of other mental and behavioral disorders; Z82.0 Family history of epilepsy and other diseases of the nervous system; Z82.49 Family history of ischemic heart disease and other diseases of the circulatory system; Z87.440 Personal history of urinary (tract) infections; Z91.19 Patient's noncompliance with other medical treatment and regimen; Z91.81 History of falling; Z88.8 Allergy status to other drugs, medicaments and biological substances; Z90.49 Acquired absence of other specified parts of digestive tract; Z99.3 Dependence on wheelchair
CPT/HCPCS: 36415; 80053; 80061; 81001; 82306; 82607; 83036; 83540; 83550; 83735; 84436; 84443; 84480; 85025; 86592; 86593; 87086; 93005; 97110; 97116; 97530; 97535